=== PATIENT | female | born 1995 | race Caucasian/White ===

== ENCOUNTER 2022-08-01 10:09 | Emergency (ER) | payer OTHER, SELFPAY ==
[2022-08-01 10:10] VITALS: BP 173/118; PULSE 126; RESP 18; TEMP 36.6; O2SAT 100; BMI 25.4
--- NOTE | 2022-08-01 10:51 | MRI_ITS ---
STUDY: MRI LUMBAR SPINE WITHOUT CONTRAST REASON FOR EXAM: Female, 27 years old. Numbness S1, S2 dermatome bilateral TECHNIQUE: Standardized fat and water weighted pulse sequences were obtained in the sagittal and axial planes. COMPARISON: None FINDINGS: T12-L1: Normal endplates. Normal disc height, hydration and morphology. Normal bilateral facet joints. Normal central canal and bilateral lateral recesses. Normal bilateral intervertebral neural foramina. Normal lumbar lordosis. There is no substantial scoliosis. Normal conus medullaris that terminates at the L1. L1-2: Normal endplates. Normal disc height, hydration and morphology. Normal bilateral facet joints. Normal central canal and bilateral lateral recesses. Normal bilateral intervertebral neural foramina. L2-3: Normal endplates. Normal disc height, hydration and morphology. Normal bilateral facet joints. Normal central canal and bilateral lateral recesses. Normal bilateral intervertebral neural foramina. L3-4: Normal endplates. Normal disc height, hydration and morphology. Normal bilateral facet joints. Normal central canal and bilateral lateral recesses. Normal bilateral intervertebral neural foramina. L4-5: Normal endplates. Normal disc height, hydration and morphology. Normal bilateral facet joints. Normal central canal and bilateral lateral recesses. Normal bilateral intervertebral neural foramina. L5-S1: Mild broad disc protrusion produces mild spinal stenosis and mild bilateral neural foraminal stenosis. Normal visualized sacral ala. Normal visualized paraspinous soft tissue structures. MRI/Spine Lumbar (Routine) IMPRESSION: Mild focal degenerative disc disease at L5/S1 as described above. Electronically Signed: Zaki Kraus MD at 13:13 EST ,
--- NOTE | 2022-08-01 10:51 | ED.VIS.BACK ---
HPI History of Present Illness Chief Complaint: Back Detail of Chief Complaint: Bilateral back pain with bilateral numbness buttocks and right and left eugene Informant: patient Onset/Context/Timing Onset: Yesterday Context: Sudden Onset Injury: - (No history of injury) Timing: Continuous Quality: Dull Location: Lumbar, Buttock and - (Right and left groin) Current Severity: Mild Maximum Severity: Moderate Worsened by: improves with Movement, Ambulation, Bending and Lifting Relieved by: Nothing Associated Symptoms Associated Symptoms: Numbness, Tingling, Fever and - (Denies bowel bladder dysfunction. Denies saddle paresthesia or anesthesia. Denies foot drop. Denies buckling of her knees going up or down steps); Negative for Radiation to Right Leg, Radiation to Left Leg, Abdominal Pain, Dysuria, Unable to Ambulate, Unable to Transfer, Urinary Retention, Urinary Incontinence, Constipation or Fecal Incontinence Narrative Narrative: Patient is a 27-year-old female who presents with bilateral low back pain and numbness in the distribution of S1-S2. She denies bowel bladder dysfunction. Denies saddle paresthesia anesthesia. She has had a documented temperature to 101 degrees. She denies urologic symptoms. She states she went to a chiropractor to have her back adjusted because she has to work tomorrow. He would not see her because of the numbness. There is no recent history of dental procedure. She has mild congestion. There is no history of recent vaccination per old records. Prior similar symptoms: No Recent Illness/Hospitalization: No PFSH PFSH Medical History no medical history no medical history Home Medications hydrocodone-acetaminophen 5-325mg 5mg-325mg 1 tab PO Q6H PRN PRN Pain 3 days #10 TABLETS 08/01/22 [Rx Last Taken Unknown] naproxen 500 mg tablet 500 mg PO BID #14 tabs 08/01/22 [Rx Last Taken Unknown] Allergy/AdvReac Type Severity Reaction Status Date / Time lavender (Lavandula Allergy Hives Verified 08/01/22 10:13 angustifolia) Surgical History no surgical history no surgical history Social History (Updated 08/01/22 @ 10:[address] Lucho Weiss MD) household members: significant other Smoking Status: Unknown if ever smoked substance use type: does not use ROS ROS ED Constitutional Constitutional ED: Reports fever(s); Denies chills, subjective or sweats Eyes Eyes: Denies blurry vision, change in vision or diplopia ENT ENT ED: Denies ear pain, rhinorrhea or sore throat Cardiovascular Cardiovascular: Denies chest pain, orthopnea, palpitations or paroxysmal nocturnal dyspnea Respiratory/Chest Respiratory/Chest: Denies dyspnea, dyspnea on exertion, orthopnea or paroxysmal nocturnal dyspnea Gastrointestinal Gastrointestinal: Denies abdominal pain, constipation, diarrhea, nausea or vomiting Genitourinary Genitourinary ED: Denies dysuria, hematuria or urinary frequency Musculoskeletal Musculoskeletal: Reports back pain; Denies arthralgias, myalgias or neck pain Integumentary Denies Abrasions or rash Neurologic Neurologic: Reports paresthesias; Denies headache(s) or weakness Psychiatric Psychiatric: Denies anxiety or depression Endocrine Endocrinology: Denies cold intolerance or heat intolerance Hematologic/Lymphatic Hematologic/Lymphatic: Denies easy bleeding, easy bruising or lymphadenopathy EXAM Physical Exam Const Vital Signs: 08/01/22 10:10 Temperature 98 F Temperature Source Temporal Pulse Rate 126 H Respiratory Rate 18 Blood Pressure 173/118 H Blood Pressure Mean 136 Pulse Ox 100 Oxygen Delivery Method Room Air Positive well nourished and well developed General Appearance ED: well developed and NAD; Negative for pallor HEENT Reports moist mucous membranes HEENT Narrative: Ears normal. Head atraumatic normocephalic. Nares patent. Eyes PERRL and EOMs intact bilaterally General Eye ED: Negative for pale conjunctiva or scleral icterus Neck no lymphadenopathy, supple and no JVD Resp normal respiratory effort and clear to auscultation bilaterally Cardio regular rhythm, S1 normal heart sound, S2 normal heart sound and no murmurs Rate: tachycardic GI normal to inspection, nondistended, normoactive bowel sounds, soft to palpation, non-tender, non-distended and no masses Back/Spine normal to inspection; Negative for no thoracic nor lumbar tenderness Back/Spine Narrative: Pain to the normal the lumbar region. DTR 2+ patella ankle and symmetric. EHL intact. Normal sensation over L3, L4, L5. Patient does have numbness in the S1 distribution bilaterally. She has normal perianal sensation. There is no clonus. There is no Babinski sign. Gait was observed with no foot drop. Able to walk on heels and toes. Movement does her pain. Cervical Spine: Negative for cervical spine tenderness Thoracic Spine / Upper Back: Negative for paraspinal muscle tenderness Lumbar Spine / Lower Back: ROM limited and straight leg raise negative bilaterally Extremity normal to inspection and no clubbing, cyanosis or edema Neuro oriented x3 and No no sensory deficits noted Motor Exam: strength 5/5 throughout Deep Tendon Reflexes: Rt Patellar (L4): 2+, Lt Patellar (L4): 2+, Rt Ankle (S1): 2+ and Lt Ankle (S1): 2+ Deep Tendon Reflexes Back: Rt Patellar (L4): 2+, Lt Patellar (L4): 2+, Rt Ankle (S1): 2+ and Lt Ankle (S1): 2+ Plantar Reflex: Downgoing: bilateral Psych mental status grossly normal Skin no rashes or lesions noted and no wounds General Skin Exam: Negative for jaundice or pallor MDM MDM MDM Narrative Medical decision making narrative: Complaint of pain, fever and subjective numbness in the S1 dermatome contacted radiologist regarding proper image. After discussion MRI without contrast was ordered. MRI reveals no significant abnormality. Patient was treated with oral analgesics and discharged home Radiography Diagnostic Testing: Clinical Impression(s) from Imaging Studies Lumbar Spine MRI 08/01/22 10:51 IMPRESSION: Mild focal degenerative disc disease at L5/S1 as described above. Electronically Signed: Zaki Kraus MD at 13:13 EST Reading Location ID and State: [address] [place] [address] Tel , Service support , Discharge Plan Triage Chief Complaint: Back ED Provider: Lucho Weiss Dx/Rx/DC Orders Clinical Impression: Acute bilateral low back pain, Paresthesia of both legs Instructions: ED Back Pain (Acute or Chronic), ED Paraesthesias Prescriptions: New hydrocodone-acetaminophen [hydrocodone-acetaminophen] 5-325 mg tablet 1 tab PO Q6H PRN PRN (Reason: Pain) 3 Days Qty: 10 0RF naproxen 500 mg tablet 500 mg PO BID Qty: 14 0RF Stand Alone Forms: ED Work / School Excuse Primary Care Provider: Care Physician,No Primary Referrals: Town Doctor,Out of [Non-Staff] - 3-5 Days if not improving Activity Restrictions/Additional Instructions: 1. Apply ice to your lower back 8-10 times a day 2. Avoid activity that causes you increased pain Disposition Disposition: Home, Self Care
[2022-08-01 14:03] VITALS: RESP 16
== END 2022-08-01 14:05 | disposition home or self-care (01) ==
PROVIDERS: Emergency Provider Emergency Medicine; Visit Provider Emergency Medicine
DX: M54.50 Low back pain, unspecified (principal); R20.2 Paresthesia of skin; R50.9 Fever, unspecified
CPT/HCPCS: 72148; 99282

== ENCOUNTER → 2023-03-27 | Outpatient (CLI) | payer OTHER, SELFPAY ==
[2023-03-27 12:46] LABS: Absolute Lymphocyte Count 2.17 X10^3/uL (0.83-4.51); Absolute Neutrophil Count 4.4 X10^3/uL (2.0-7.7); Basophil# 0.07 X10^3/uL; Eosinophil# 0.09 X10^3/uL; Eosinophils% 1.2 % (0-5); Hematocrit 41.9 % (37-47); Hemoglobin 13.8 g/dL (12.0-15.0); Lymphocyte # 2.17 X10^3/ul (0.83-4.51); Lymphocyte % 29.8 % (19-41); Mean Corp Hgb Conc 32.9 g/dL (32-36); Mean Corpuscular Volume 91.1 fL (81-99); Mean Platelet Vol. 9.4 fl (6.2-12.0); Monocyte# 0.54 X10^3/uL; Monocyte% 7.4 % (0-10); NRBC Flagged by Analyzer 0 % (0-5); Neutrophil % 60.3 % (47-70); Platelet Count 243 K/mm3 (150-450); RBC Distribution Width CV 11.9 % (11.6-14.6); RBC Distribution Width SD 39.8 fl (35.1-43.9); White Blood Count 7.3 K/mm3 (4.4-11.0)
[2023-03-27 13:44] LABS: HIV - WCH Non-Reactive (Nonreactive); Hepatitis B Surface Antigen Non-Reactive (Nonreactive); Hepatitis C Antibody Non-Reactive (Nonreactive); Rubella IgG Reactive (Nonreactive); Syphilis Antibodies Non-reactive
== END | disposition home or self-care (01) ==
PROVIDERS: PCP Family Medicine; Referring Provider Obstetrics & Gynecology; Visit Provider Obstetrics & Gynecology
DX: Z34.90 Encounter for supervision of normal pregnancy, unspecified, unspecified trimester (principal); Z3A.00 Weeks of gestation of pregnancy not specified
CPT/HCPCS: 36415; 84702; 85025; 86703; 86762; 86780; 86803; 86850; 86900; 86901; 87086; 87340

== ENCOUNTER → 2023-04-05 | Outpatient (CLI) | payer OTHER, SELFPAY ==
[2023-04-08 22:07] LABS: Chlamydia By Nucleic Acid AMP Negative (Negative); Gonococcus By Nucleic Acid AMP Negative (Negative)
[2023-04-11 13:08] LABS: HPV APTIMA, High Risk Negative (Negative)
== END | disposition home or self-care (01) ==
LOC: LABSPEC 16:26
PROVIDERS: PCP Family Medicine; Referring Provider Obstetrics & Gynecology; Visit Provider Obstetrics & Gynecology
DX: Z34.90 Encounter for supervision of normal pregnancy, unspecified, unspecified trimester (principal); Z3A.00 Weeks of gestation of pregnancy not specified
CPT/HCPCS: 87491; 87591; 87624; 88175; G0145

== ENCOUNTER → 2023-04-16 | Outpatient (CLI) | payer OTHER, SELFPAY ==
[2023-04-16 11:35] LABS: NATERA MAILED SPECIMEN
== END | disposition home or self-care (01) ==
LOC: LAB 10:33
PROVIDERS: PCP Family Medicine; Referring Provider Obstetrics & Gynecology; Visit Provider Obstetrics & Gynecology
DX: Z34.81 Encounter for supervision of other normal pregnancy, first trimester (principal); Z3A.00 Weeks of gestation of pregnancy not specified
CPT/HCPCS: 36415

== ENCOUNTER → 2023-06-24 | Outpatient (CLI) | payer OTHER, SELFPAY ==
--- NOTE | 2023-06-24 13:24 | US_ITS ---
HISTORY: anatomy. LMP 02/04/2023. TECHNIQUE: Transabdominal and transvaginal pelvic ultrasound was performed. 117 images. COMPARISON: None. FINDINGS: INTRAUTERINE GESTATION(s): Single. PRESENTATION: Breech. HEART MOTION: 152 bpm. PLACENTA: Anterior, grade 0. No placenta previa. CERVIX: 3.6-5.2 cm long and closed. AMNIOTIC FLUID: 4.9 cm maximum vertical pocket. MATERNAL OVARIES: 3.7 x 3.8 x 3.9 cm left ovarian cyst. biometry- BIPARIETAL DIAMETER: 4.6 cm, corresponding to 19 weeks 6 days. 45th percentile. HEAD CIRCUMFERENCE: 17.1 cm, corresponding to 19 weeks 5 days. 29 percentile. ABDOMINAL CIRCUMFERENCE: 14.5 cm, corresponding to 19 weeks 6 days. 38th percentile. FEMUR LENGTH: 3 cm, corresponding to 19 weeks 1 day. 14th percentile. ESTIMATED GESTATIONAL AGE: 19 weeks 4 days. ESTIMATED DUE DATE (LEANA): 11/14/2023. ESTIMATED WEIGHT: 299 g. 23rd percentile. ANATOMY: Anterior and posterior cranial fossa, nose/lips, spine, upper and lower extremities, four-chamber heart, three-vessel cord insertion, stomach, kidneys, and bladder visualized. US/OB Anatomy w/ Transvaginal IMPRESSION: Single living intrauterine currently in breech presentation with an estimated gestational age of 19 weeks 4 days. Unremarkable anatomic survey. 3.9 cm cyst in the maternal left ovary. Electronically Signed: Kiki Edmondson MD at 10:00 EDT ,
== END | disposition home or self-care (01) ==
LOC: OPUS 13:24
PROVIDERS: PCP Family Medicine; Referring Provider Registered Nurse; Visit Provider Registered Nurse
DX: O09.90 Supervision of high risk pregnancy, unspecified, unspecified trimester (principal); Z3A.00 Weeks of gestation of pregnancy not specified
CPT/HCPCS: 76805; 76817

== ENCOUNTER → 2023-06-28 | Outpatient (CLI) | payer OTHER, SELFPAY | END | disposition home or self-care (01) | PROVIDERS: PCP Family Medicine; Visit Provider Obstetrics & Gynecology | DX: R35.0 Frequency of micturition (principal) | CPT/HCPCS: 87086 ==

== ENCOUNTER → 2023-08-06 | Outpatient (CLI) | payer OTHER, SELFPAY ==
--- NOTE | 2023-08-06 15:34 | US_ITS ---
STUDY: SECOND AND THIRD TRIMESTER OBSTETRICAL ULTRASOUND - LIMITED REASON FOR EXAM: Female, 28 years old left ovarian cyst / profile LMP: 02/04/2023 PRIOR ULTRASOUND: 06/24/2023 TECHNIQUE: Transabdominal TECHNICAL QUALITY: Adequate. FINDINGS: There is a single intrauterine fetus. The fetus is in a breech presentation. There is demonstrated cardiac activity with a heart rate of 144 bpm. There is a normal amniotic fluid volume. The largest amniotic fluid pocket measures 4.4 cm. The amniotic fluid index (BLANK) is cm. The placenta is fundal in location. There are Grade 1 placental changes. The cervix measures 3.2 cm in length. Age by LMP: 26 weeks, 1 days. LEANA by LMP: 11/11/2023. There is an 8.5 x 5.0 cm isoechoic mass in the left adnexa adjacent to the uterus with similar echogenicity to myometrium. This is of uncertain etiology and significance. The right ovary measures 3.6 x 1.7 cm with normal morphology and echogenicity. The left ovary measures 2.6 x 2.6 cm and contains a 4.0 cm oval anechoic mass possibly a theca lutein cyst. US/OB Limited (No Biometrics) IMPRESSION: 1. Living intrauterine of 26 weeks 1 day as described above. 2. 8.5 x 5.0 cm isoechoic mass in the left adnexa adjacent to the uterus of uncertain etiology and significance. 3. No change in 4 cm probable theca lutein cyst of the left ovary. Electronically Signed: Zaki Kraus MD at 17:29 EST ,
== END | disposition home or self-care (01) ==
LOC: US 15:33
PROVIDERS: PCP Family Medicine; Referring Provider Registered Nurse; Visit Provider Registered Nurse
DX: O34.82 Maternal care for other abnormalities of pelvic organs, second trimester (principal); N83.202 Unspecified ovarian cyst, left side; Z3A.20 20 weeks gestation of pregnancy
CPT/HCPCS: 76815

== ENCOUNTER → 2023-08-23 | Outpatient (CLI) | payer OTHER, SELFPAY ==
[2023-08-23 08:18] LABS: Absolute Lymphocyte Count 1.82 X10^3/uL (0.83-4.51); Absolute Neutrophil Count 5.7 X10^3/uL (2.0-7.7); Basophil# 0.05 X10^3/uL; Basophil% 0.6 % (0-1); Eosinophil# 0.09 X10^3/uL; Eosinophils% 1.1 % (0-5); Hematocrit 39.1 % (37-47); Lymphocyte # 1.82 X10^3/ul (0.83-4.51); Lymphocyte % 22.6 % (19-41); Mean Corp Hgb Conc 33.2 g/dL (32-36); Mean Corpuscular Hgb 30.6 pg (27.0-32.0); Mean Platelet Vol. 9.2 fl (6.2-12.0); NRBC Flagged by Analyzer 0 % (0-5); Neutrophil # 5.67 X10^3/uL (2.7-7.7); Neutrophil % 70.2 % (47-70); Platelet Count 195 K/mm3 (150-450); RBC Distribution Width CV 12.8 % (11.6-14.6); Red Blood Count 4.25 M/mm3 (4.2-5.4); White Blood Count 8.1 K/mm3 (4.4-11.0)
[2023-08-23 08:40] LABS: Glucose Challenge Gest 1H 50g 115 mg/dL (70-140)
[2023-08-23 09:15] LABS: HIV - WCH Non-Reactive (Nonreactive); Syphilis Antibodies Non-reactive
== END | disposition home or self-care (01) ==
PROVIDERS: Advanced Practice Midwife; PCP Family Medicine; Referring Provider Obstetrics & Gynecology; Visit Provider Obstetrics & Gynecology
DX: Z34.90 Encounter for supervision of normal pregnancy, unspecified, unspecified trimester (principal); Z3A.24 24 weeks gestation of pregnancy
CPT/HCPCS: 36415; 82950; 85025; 86703; 86780

== ENCOUNTER → 2023-10-03 | Outpatient (CLI) | payer OTHER, SELFPAY ==
--- NOTE | 2023-10-03 07:56 | MRI_ITS ---
EXAM: MR PELVIS WITHOUT INTRAVENOUS CONTRAST CLINICAL INDICATION: pelvic mass FIBROID AND CYST FOUND AT 20WK ULTRASOUND -- NO CONTRAST DUE TO CURRENTLY 35WK ...SOME LT SIDED PAIN TECHNIQUE: Multiplanar and multisequence MR images of the pelvis without intravenous contrast. COMPARISON: No relevant prior studies available. FINDINGS: OVARIES: Right ovary is not clearly seen. 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 Endometrial thickness of the left horn is 2.1 cm. A single fetus is present within the right horn in breech presentation demonstrating a crown-rump length of 26.67 cm and BPD of 8.3 cm. Cervix measures 3.5 cm in diameter and appears closed. 12 mm cystic area along the right side of the cervix suggestive of nabothian cyst. Right lateral placental location without evidence of previa. Amniotic fluid volume appears diminished. A 4.8 x 4.2 cm simple appearing cyst located anterior to the left uterine horn which is likely physiologic change of the left ovary. MRI/Pelvis (Routine) IMPRESSION: 1. Soft tissue mass within the left side of the pelvis consistent with the left horn of a didelphys uterus. 2. Third trimester gestation within the right uterine horn with suggestion of oligohydramnios. 3. 4.8 x 4.2 cm left anterior adnexal cystic mass which may represent physiologic change of the ovary. Electronically Signed: Colton Ugalde MD at 10:46 EST ,
== END | disposition home or self-care (01) ==
LOC: MRI 07:54
PROVIDERS: PCP Family Medicine; Referring Provider Obstetrics & Gynecology; Visit Provider Obstetrics & Gynecology
DX: O26.899 Other specified pregnancy related conditions, unspecified trimester (principal); R19.00 Intra-abdominal and pelvic swelling, mass and lump, unspecified site; Z3A.00 Weeks of gestation of pregnancy not specified
CPT/HCPCS: 72195

== ENCOUNTER 2023-10-15 15:12 | Outpatient (CLI) | payer OTHER, SELFPAY ==
[2023-10-15 15:29] VITALS: TEMP 36.1
[2023-10-15 15:30] VITALS: BP 140/95; PULSE 93
[2023-10-15 15:36] VITALS: BMI 29.7
[2023-10-15 15:46] VITALS: BP 143/93; PULSE 86
[2023-10-15 16:01] VITALS: BP 139/93; PULSE 109
[2023-10-15 16:14] LABS: Hematocrit 39.5 % (37-47); Hemoglobin 13.8 g/dL (12.0-15.0); Mean Corp Hgb Conc 34.9 g/dL (32-36); Mean Corpuscular Hgb 31.3 pg (27.0-32.0); Mean Corpuscular Volume 89.6 fL (81-99); Mean Platelet Vol. 9.8 fl (6.2-12.0); Platelet Count 206 K/mm3 (150-450); RBC Distribution Width CV 12.5 % (11.6-14.6); Red Blood Count 4.41 M/mm3 (4.2-5.4); White Blood Count 10.9 K/mm3 (4.4-11.0)
[2023-10-15 16:16] VITALS: BP 145/99; PULSE 100
[2023-10-15 16:17] LABS: Protein, Urine (Random) 11.9 mg/dL (<11.9); Protein:Creat Ratio 316 mg/g CRE (0-200)
[2023-10-15 16:18] LABS: AST(SGOT) 18 U/L (15-37); Alanine Aminotransfer ALT/SGPT 21 U/L (13-56); Creatinine, Serum 0.48 mg/dL (0.55-1.02); EST Glomerular Filtration Rate 163 mL/min (>60); Est Glom Filt Rate - Afr Amer 197 mL/min (>60); Estimated Creatinine Clearance 170.67 ml/min; Uric Acid 4.4 mg/dL (2.6-6.0)
[2023-10-15 16:31] VITALS: BP 147/94; PULSE 95
--- NOTE | 2023-10-15 16:43 | OB.TRI.HP_ITS ---
HPI - General HPI Narrative NELLI STEWART, is a 28 Y/O @ 36 WEEKS 1 day who presents to L&D for elevated bp's that were seen in office. the patient denies headache, visual changes, or abdominal pain. bp's are 140's/90's and prot: cr ratio was 316. Maternal Data Information LEANA Calculator Estimated Delivery Date Method Current WG Current Estimate 11/11/23 LMP (Certain) 36w 1d PFSH PFSH Medical History Hx of abnormal cervical Pap smear Home Medications multivit-min no.71-iron fum 28 mg-folate no.1 1 mg-dha 300 mg capsule (PNV- Jewett) cap PO 03/26/23 [History Last Taken Unknown] Allergy/AdvReac Type Severity Reaction Status Date / Time lavender (Lavandula Allergy Hives Verified 10/15/23 14:23 angustifolia) Surgical History History of appendectomy [place] teeth extracted Social History adopted: No household members: spouse current occupational status: employed 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 pets and animals: No history of recent travel: Yes ([place], [place]) out of state: Yes out of country: No sexually active: Yes Smoking Status: Never smoker alcohol intake: current alcohol intake frequency: holidays/special occasions o nly details: Not while substance use type: does not use well-balanced diet: daily or most days caffeine: Yes Type: coffee Number of servings: 1 eating out: rarely or never during the past year weight has: remained stable what type of physical activity do you participate in: weight training frequency: 1-2 times per week [facility]: Jew seatbelt use: always do you feel safe at home: Yes additional social history: Yusef Sutton History 1 Elective abortions Hx Para 0 Spontaneous abortions Hx # Term Pregnancies Ectopic pregnancies Hx # Pregnancies Multiple births # of living children Visit Details Expected Delivery Route/Plan Labor Preferences- CB/BF classes: declined labor support person: yusef labor intervention preferences: pain management options preferred: open to epidural cut cord/dad catch: [] : yes PP control planned: none discussed possible routes of delivery and associated risks: [] special requests: [] Plans Covid status: declined Flu vaccine: given Tdap vaccine: given Rhogam: na LARC form signed: declined movement and labor precautions reviewed. Problem list reviewed and updated with the most current plan of care details and appropriate orders placed. Relevant counseling for the gestational age provided. Continue routine care and follow up unless otherwise noted in visit notes/problem list details OB Flowsheet Initial Weight: 148 lb Date -?-?-?-?-?-?-?-?-?-?-?-?- EGA Weight BP Urine Prot -?-?-?-?-?-?-?-?-?-?-?-?- Glucose FHR FuHt Pres Dilation -?-?-?-?-?-?-?-?-?-?-?-?- Effaced St Visit Note 04/05/23 -?-?-?-?-?-?-?-?-?-?-?-?- 8w 4d 148 lb 6 oz (+6 oz) -?-?-?-?-?-?-?-?-?-?-?-?- 124 -?-?-?-?-?-?-?-?-?-?-?-?- JV- CRL consiste nt with LMP. LEANA 11/10/22, desires NIPT but declines carrier screen. 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 04/29/23 -?-?-?-?-?-?-?-?-?-?-?-?- 12w 0d 146 lb 6 oz (-1 lb 10 oz) 145/92 130/76 Negative -?-?-?-?-?-?-?-?-?-?-?-?- Negative 160 -?-?-?-?-?-?-?-?-?-?-?-?- LC- no vb/crampi ng. LC- no vb/cramping. no florian rns today. discussed and declines afp. [facility] for anatomy scan, order placed. 05/31/23 -?-?-?-?-?-?-?-?-?-?-?-?- 16w 4d 150 lb 4 oz (+2 lb 4 oz) 122/80 Negative -?-?-?-?-?-?-?-?-?-?-?-?- Negative 156 -?-?-?-?-?-?-?-?-?-?-?-?- LC- no vb/crampi ng. no concerns. 06/28/23 -?-?-?-?-?-?-?-?-?-?-?-?- 20w 4d 152 lb 8 oz (+4 lb 8 oz) 134/86 Negative -?-?-?-?-?-?-?-?-?-?-?-?- Negative 165 -?-?-?-?-?-?-?-?-?-?-?-?- JV- some crampin g and dark urine. ua looks normal but will send for culture. no other complaints. nurse on [employer] 07/23/23 -?-?-?-?-?-?-?-?-?-?-?-?- 24w 1d 157 lb (+9 lb) 119/74 Negative -?-?-?-?-?-?-?-?-?-?-?-?- Negative 150 24 -?-?-?-?-?-?-?-?-?-?-?-?- no vb/cramping. good fm. discussed 28 week labs. 08/23/23 -?-?-?-?-?-?-?-?-?-?-?-?- 28w 4d 159 lb 4 oz (+11 lb 4 oz) 136/86 Negative -?-?-?--?-?-?-?-?-?-?-?-?- Negative 145 29 -?-?-?-?-?-?-?-?-?-?-?-?- JV- ultrasound s howed an 8 cm mass that has similar echogenicity to myometrium. I suspect a fibroid, however this never showed up in her prior ultrasound. ordering MRI and will consider MFM consult. it is located on the left upper aspect of uterus. JV- ultrasound showed an 8 c m mass that has similar echogenicity to myometrium. I suspect a fibroid, however this never showed up in her prior ultrasound. ordering MRI and will consider MFM consult. it is located on the left upper aspect of uterus. Tdap given. normal 3rd trimester labs. 09/05/23 -?-?-?-?-?-?-?-?-?-?-?-?- 30w 3d 160 lb (+12 lb) 130/80 Negative -?-?-?-?-?-?-?-?-?-?-?-?- Negative 140 32 -?-?-?-?-?-?-?-?-?-?-?-?- SM- needs to [facility]. no vb lof good fm no regular ctx 09/20/23 -?-?-?-?-?-?-?-?-?-?-?-?- 32w 4d 164 lb 6 oz (+16 lb 6 oz) 138/88 Negative -?-?-?-?-?-?-?-?-?-?-?-?- Negative 142 32 -?-?-?-?-?-?-?-?-?-?-?-?- JV- no lof, vagi nal bleeding, or dec fm. has mri scheduled! 10/02/23 -?-?-?-?-?-?-?-?-?-?-?-?- 34w 2d 167 lb (+19 lb) 138/86 Negative -?-?-?-?--?-?-?-?-?-?-?-?- Negative 150 34 -?-?-?-?-?-?-?-?-?-?-?-?- JV- no lof, vagi nal bleeding, or dec fm. no complaints other than not sleeping well. 10/15/23 -?-?-?-?-?-?-?-?-?-?-?-?- 36w 1d 169 lb (+21 lb) 140/80 -?-?-?-?-?-?-?-?-?-?-?-?- 140 36 Breech -?-?-?-?-?-?-?-?-?-?-?-?- SM- no vb lof go od fm n oregular ctx no VICKERS BV to l and d for pree evaluation scheduled cs at 39 for now ordered growth US only 1 cervix on exam and 1 vagina ROS Constitutional Constitutional: Reports systems reviewed and no addt'l complaints, except as documented Gastrointestinal Gastrointestinal: Denies bloating, constipation, cramping, diarrhea, nausea or vomiting Genitourinary Genitourinary: Reports other Details: Denies vaginal odor, vaginal bleeding, or vaginal discharge ; Denies difficulty urinating or flank pain Physical Exam HEENT normocephalic Resp normal respiratory effort and normal air movement no CVA tenderness Extremity normal to inspection General Extremity: edema bilateral (trace ) NST FHR Rate Baby A Baseline: 140 Variability:: Moderate Accelerations:: 15 x 15 Decelerations:: None NST Reactive:: Yes FHR Category:: Category I Assessment & Plan (1) Mild pre-eclampsia: (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 (3) Breech presentation: COMMENT: plan primary csection. (4) Ovarian cyst affecting in second trimester, antepartum: COMMENT: 3.9cm (5) Supervision of high-risk : COMMENT: PRR , LEANA 11/11/23, boy, Yusef (6) : QUALIFIERS: Weeks of gestation: 36 weeks Qualified Code(s): Z3A.36 - 36 weeks gestation of COMMENT: NIPT low risk, declined ntd and carrier testing. anatomy reviewed. PLAN: Plan plan for steroids now and rpt tomorrow at this time. will rpt bp tomorrow when here if in severe range may deliver tomorrow, otherwise will plan for 37 weeks (saturday am) Charges/Coding Multi Select Codes Visit Charges Office Visit/Consults: 42886 OV L3 Est 20min Urinary/Genital Urinary/Genital CPT Codes: 41466-76 non-stress test Interp
[2023-10-15] MEDS: Betamethasone/Betamethasone 30 MG/5 ML Vial 12 MG IM (16:53)
== END 2023-10-15 17:10 | disposition home or self-care (01) ==
LOC: WPOUT 15:13 → WP 15:16
PROVIDERS: PCP Family Medicine; Referring Provider Advanced Practice Midwife; Visit Provider Advanced Practice Midwife
DX: O14.03 Mild to moderate pre-eclampsia, third trimester (principal); Z3A.36 36 weeks gestation of pregnancy; O34.03 Maternal care for unspecified congenital malformation of uterus, third trimester; Q51.3 Bicornate uterus; O32.1XX0 Maternal care for breech presentation, not applicable or unspecified
CPT/HCPCS: 36415; 59025; 59050; 82565; 82570; 84156; 84450; 84460; 84550; 85027; 87081; 96372; 99221; G0378; J0702

== ENCOUNTER 2023-10-16 15:44 | Outpatient (CLI) | payer OTHER, SELFPAY ==
[2023-10-16 15:57] VITALS: BMI 29.5
[2023-10-16 16:11] VITALS: BP 139/93; PULSE 100
[2023-10-16] MEDS: Betamethasone/Betamethasone 30 MG/5 ML Vial 12 MG IM (16:30)
--- NOTE | 2023-10-16 16:41 | OB.TRI.HP_ITS ---
HPI - General General Date of Admission: 10/16/23 HPI Narrative NELLI STEWART, is a 28 F who presents today for an injection of celestone for mild pre-eclampsia and planned section saturday. She denies severe features and bp is stable. Maternal Data Information LEANA Calculator Estimated Delivery Date Method Current WG Current Estimate 11/11/23 LMP (Certain) 36w 2d PFSH PFSH Medical History Hx of abnormal cervical Pap smear Home Medications multivit-min no.71-iron fum 28 mg-folate no.1 1 mg-dha 300 mg capsule (PNV- [place]) cap PO 03/26/23 [History Last Taken Unknown] Allergy/AdvReac Type Severity Reaction Status Date / Time lavender (Lavandula Allergy Hives Verified 10/15/23 14:23 angustifolia) Surgical History History of appendectomy [place] teeth extracted Social History adopted: No household members: spouse current occupational status: employed 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 pets and animals: No history of recent travel: Yes ([place], [place]) out of state: Yes out of country: No sexually active: Yes Smoking Status: Never smoker alcohol intake: current alcohol intake frequency: holidays/special occasions only details: Not while substance use type: does not use well-balanced diet: daily or most days caffeine: Yes Type: coffee Number of servings: 1 eating out: rarely or never during the past year weight has: remained stable what type of physical activity do you participate in: weight training frequency: 1-2 times per week heavenly/zoroastrian: Taoism seatbelt use: always do you feel safe at home: Yes additional social history: Yusef Sutton History 1 Elective abortions Hx Para 0 Spontaneous abortions Hx # Term Pregnancies Ectopic pregnancies Hx # Pregnancies Multiple births # of living children Visit Details Expected Delivery Route/Plan Labor Preferences- CB/BF classes: declined labor support person: yusef labor intervention preferences: pain management options preferred: open to epidural cut cord/dad catch: [] : yes PP control planned: none discussed possible routes of delivery and associated risks: [] special requests: [] Plans Covid status: declined Flu vaccine: given Tdap vaccine: given Rhogam: na LARC form signed: declined movement and labor precautions reviewed. Problem list reviewed and updated with the most current plan of care details and appropriate orders placed. Relevant counseling for the gestational age provided. Continue routine care and follow up unless otherwise noted in visit notes/problem list details OB Flowsheet Initial Weight: 148 lb Date -?-?-?-?-?-?-?-?-?-?-?-?- EGA Weight BP Urine Prot -?-?-?-?-?-?-?-?-?-?-?-?- Glucose FHR FuHt Pres Dilation -?-?-?-?-?-?-?-?-?-?-?-?- Effaced St Visit Note 04/05/23 -?-?-?-?-?-?-?-?-?-?-?-?- 8w 4d 148 lb 6 oz (+6 oz) -?-?-?-?-?-?-?-?-?-?-?-?- 124 -?-?-?-?-?-?-?-?-?-?-?-?- JV- CRL consiste nt with LMP. LEANA 11/10/22, desires NIPT but declines carrier screen. 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 04/29/23 -?-?-?-?-?-?--?-?-?-?-?-?- 12w 0d 146 lb 6 oz (-1 lb 10 oz) 145/92 130/76 Negative -?-?-?-?-?-?-?-?-?-?-?-?- Negative 160 -?-?-?-?-?-?-?-?-?-?--?-?- LC- no vb/crampi ng. LC- no vb/cramping. no florian rns today. discussed and declines afp. [facility] for anatomy scan, order placed. 05/31/23 -?-?-?-?-?-?-?-?-?-?-?-?- 16w 4d 150 lb 4 oz (+2 lb 4 oz) 122/80 Negative -?-?-?-?-?-?-?-?-?-?-?-?- Negative 156 -?-?-?-?-?-?-?-?-?-?-?-?- LC- no vb/crampi ng. no concerns. 06/28/23 -?-?-?-?-?-?-?-?-?-?-?-?- 20w 4d 152 lb 8 oz (+4 lb 8 oz) 134/86 Negative -?-?-?-?-?-?-?-?-?-?-?-?- Negative 165 -?-?-?-?-?-?-?-?-?-?-?-?- JV- some crampin g and dark urine. ua looks normal but will send for culture. no other complaints. nurse on ms3 07/23/23 -?-?-?-?-?-?-?-?-?-?-?-?- 24w 1d 157 lb (+9 lb) 119/74 Negative -?-?-?-?-?-?-?-?-?-?-?-?- Negative 150 24 -?-?-?-?-?-?-?-?-?-?-?-?- no vb/cramping. good fm. discussed 28 week labs. 08/23/23 -?-?-?-?-?-?-?-?-?-?-?-?- 28w 4d 159 lb 4 oz (+11 lb 4 oz) 136/86 Negative -?-?-?-?-?-?-?-?-?-?-?-?- Negative 145 29 -?-?-?-?-?-?-?-?-?-?-?-?- JV- ultrasound s howed an 8 cm mass that has similar echogenicity to myometrium. I suspect a fibroid, however this never showed up in her prior ultrasound. ordering MRI and will consider MFM consult. it is located on the left upper aspect of uterus. JV- ultrasound showed an 8 c m mass that has similar echogenicity to myometrium. I suspect a fibroid, however this never showed up in her prior ultrasound. ordering MRI and will consider MFM consult. it is located on the left upper aspect of uterus. Tdap given. normal 3rd trimester labs. 09/05/23 -?-?-?-?-?-?-?-?-?-?-?-?- 30w 3d 160 lb (+12 lb) 130/80 Negative -?-?-?-?-?-?-?-?-?-?-?-?- Negative 140 32 -?-?-?-?-?-?-?-?-?-?-?-?- [facility] l[facility] good fm no regular ctx 09/20/23 -?-?-?-?-?-?-?-?-?-?-?-?- 32w 4d 164 lb 6 oz (+16 lb 6 oz) 138/88 Negative -?-?-?-?-?-?-?-?-?-?-?-?- Negative 142 32 -?-?-?-?-?-?-?-?-?-?-?-?- JV- no lof, vagi nal bleeding, or dec fm. has mri scheduled! 10/02/23 -?-?-?-?-?-?-?-?-?-?-?-?- 34w 2d 167 lb (+19 lb) 138/86 Negative -?-?-?-?-?-?-?-?-?-?-?-?- Negative 150 34 -?-?-?-?-?-?-?-?-?-?-?-?- JV- no lof, vagi nal bleeding, or dec fm. no complaints other than not sleeping well. 10/15/23 -?-?-?-?-?-?-?-?-?-?-?-?- 36w 1d 169 lb (+21 lb) 140/80 -?-?-?-?-?-?-?-?-?-?-?-?- 140 36 Breech -?-?-?-?-?-?-?-?-?-?-?-?- SM- no vb lof go od fm n oregular ctx no VICKERS BV to l and d for pree evaluation scheduled cs at 39 for now ordered growth US only 1 cervix on exam and 1 vagina Assessment & Plan (1) Mild pre-eclampsia: PLAN: no further exam needed today bp stable, no severe features present. 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 (3) Breech presentation: COMMENT: plan primary csection. (4) Ovarian cyst affecting in second trimester, antepartum: COMMENT: 3.9cm (5) Supervision of high-risk : COMMENT: PRR , LEANA 11/11/23, boy, Yusef (6) : QUALIFIERS: Weeks of gestation: 36 weeks Qualified Code(s): Z3A.36 - 36 weeks gestation of COMMENT: NIPT low risk, declined ntd and carrier testing. anatomy reviewed.
--- NOTE | 2023-10-16 16:41 | OB.TRI.NOTE ---
HPI - General General Date of Admission: 10/16/23 HPI Narrative NELLI STEWART, is a 28 F who presents today for an injection of celestone for mild pre-eclampsia and planned section saturday. She denies severe features and bp is stable. Maternal Data Information LEANA Calculator Estimated Delivery Date Method Current WG Current Estimate 11/11/23 LMP (Certain) 36w 2d PFSH PFSH Medical History Hx of abnormal cervical Pap smear Home Medications multivit-min no.71-iron fum 28 mg-folate no.1 1 mg-dha 300 mg capsule (PNV-[place]) cap PO 03/26/23 [History Last Taken Unknown] Allergy/AdvReac Type Severity Reaction Status Date / Time lavender (Lavandula Allergy Hives Verified 10/15/23 14:23 angustifolia) Surgical History History of appendectomy [place] teeth extracted Social History adopted: No household members: spouse current occupational status: employed 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 pets and animals: No history of recent travel: Yes ([place], [place]) out of state: Yes out of country: No sexually active: Yes Smoking Status: Never smoker alcohol intake: current alcohol intake frequency: holidays/special occasions only details: Not while substance use type: does not use well-balanced diet: daily or most days caffeine: Yes Type: coffee Number of servings: 1 eating out: rarely or never during the past year weight has: remained stable what type of physical activity do you participate in: weight training frequency: 1-2 times per week heavenly/restoration: Advent seatbelt use: always do you feel safe at home: Yes additional social history: Yusef Sutton History 1 Elective abortions Hx Para 0 Spontaneous abortions Hx # Term Pregnancies Ectopic pregnancies Hx # Pregnancies Multiple births # of living children Visit Details Expected Delivery Route/Plan Labor Preferences- CB/BF classes: declined labor support person: yusef labor intervention preferences: pain management options preferred: open to epidural cut cord/dad catch: [] : yes PP control planned: none discussed possible routes of delivery and associated risks: [] special requests: [] Plans Covid status: declined Flu vaccine: given Tdap vaccine: given Rhogam: na LARC form signed: declined movement and labor precautions reviewed. Problem list reviewed and updated with the most current plan of care details and appropriate orders placed. Relevant counseling for the gestational age provided. Continue routine care and follow up unless otherwise noted in visit notes/problem list details OB Flowsheet Initial Weight: 148 lb Date <del>?</del> EGA Weight BP Urine Prot <del>?</del> Glucose FHR FuHt Pres Dilation <del>?</del> Effaced St Visit Note 04/05/23 <del>?</del> 8w 4d 148 lb 6 oz (+6 oz) <del>?</del> 124 <del>?</del> JV- CRL consistent with LMP. LEANA 11/10/22, desires NIPT but declines carrier screen. 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 LC- no vb/cramping. no concerns today. discussed and declines afp. [facility] for anatomy scan, order placed. 05/31/23 <del>?</del> 16w 4d 150 lb 4 oz (+2 lb 4 oz) 122/80 Negative <del>?</del> Negative 156 <del>?</del> LC- no vb/cramping. no concerns. 06/28/23 <del>?</del> 20w 4d 152 lb 8 oz (+4 lb 8 oz) 134/86 Negative <del>?</del> Negative 165 <del>?</del> JV- some cramping and dark urine. ua looks normal but will send for culture. no other complaints. nurse on ms3 07/23/23 <del>?</del> 24w 1d 157 lb (+9 lb) 119/74 Negative <del>?</del> Negative 150 24 <del>?</del> no vb/cramping. good fm. discussed 28 week labs. 08/23/23 <del>?</del> 28w 4d 159 lb 4 oz (+11 lb 4 oz) 136/86 Negative <del>?</del> Negative 145 29 <del>?</del> JV- ultrasound showed an 8 cm mass that has similar echogenicity to myometrium. I suspect a fibroid, however this never showed up in her prior ultrasound. ordering MRI and will consider MFM consult. it is located on the left upper aspect of uterus. JV- ultrasound showed an 8 cm mass that has similar echogenicity to myometrium. I suspect a fibroid, however this never showed up in her prior ultrasound. ordering MRI and will consider MFM consult. it is located on the left upper aspect of uterus. Tdap given. normal 3rd trimester labs. 09/05/23 <del>?</del> 30w 3d 160 lb (+12 lb) 130/80 Negative <del>?</del> Negative 140 32 <del>?</del> SM- needs to schedule MRI. no vb lof good fm no regular ctx 09/20/23 <del>?</del> 32w 4d 164 lb 6 oz (+16 lb 6 oz) 138/88 Negative <del>?</del> Negative 142 32 <del>?</del> JV- no lof, vaginal bleeding, or dec fm. has mri scheduled! 10/02/23 <del>?</del> 34w 2d 167 lb (+19 lb) 138/86 Negative <del>?</del> Negative 150 34 <del>?</del> JV- no lof, vaginal bleeding, or dec fm. no complaints other than not sleeping well. 10/15/23 <del>?</del> 36w 1d 169 lb (+21 lb) 140/80 <del>?</del> 140 36 Breech <del>?</del> SM- no vb lof good fm n oregular ctx no VICKERS BV to l and d for pree evaluation scheduled cs at 39 for now ordered growth US only 1 cervix on exam and 1 vagina Assessment & Plan (1) Mild pre-eclampsia: PLAN: no further exam needed today bp stable, no severe features present. 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 (3) Breech presentation: COMMENT: plan primary csection. (4) Ovarian cyst affecting in second trimester, antepartum: COMMENT: 3.9cm (5) Supervision of high-risk : COMMENT: PRR , LEANA 11/11/23, boy, Yusef (6) : QUALIFIERS: Weeks of gestation: 36 weeks Qualified Code(s): Z3A.36 - 36 weeks gestation of COMMENT: NIPT low risk, declined ntd and carrier testing. anatomy reviewed.
--- OUTSIDE RECORDS SUMMARY | 2023-10-16 19:08 | XMS RPT_ITS | CCD ---
Author Name Unknown Address [id number] [place] [address] Organization [facility] Care Team Providers Care Drapery Sewer Hand Name Role Phone JITENDRA GARNER, LEROY Lovelace Unavailable [phone] Abel MCHUGH MD Unavailable AMANDA HUDSON MD Unavailable Unavailable Unavailable Medications Current Medications Medication Drug Class(es) Dates Sig (Normalized) Sig (Original) Ethinyl Estradiol / norgestimate (2 sources) Progestin, Estrogen SPRINTEC 28, 0.25-35MG-MCG (Oral Tablet) ; (0.25-35 MG-MCG) Completed/Discontinued Medications Medication Drug Class(es) Dates Sig (Normalized) Sig (Original) penicillin v potassium 500 mg oral tablet (2 sources) Start: 01-10-2015 End: 01-20-2015 take 1 tablet by mouth three times daily PENICILLIN V POTASSIUM, 500MG (Oral Tablet) ; 1 (one) Tablet three times daily for 10 days Quantity: 30 {Tablet} Refills: 0 Ordered: 12-Feb-2018 MD LEROY HAM Start: 10-Jan-2015 End: 20-Jan-2015 Status: Inactive Problems Active Problems Problem Classification Problem Date Documented Da te Episodic/Chronic Other and unspecified benign neoplasm (6 sources) Benign neoplasm of skin, site unspecified 05-16-2012 Episodic Other gastrointestinal disorders (4 sources) Celiac disease 05-02-2012 Chronic Other upper respiratory infections (4 sources) Streptococcal sore throat 01-10-2015 Episodic Past or Other Problems Problem Classification Problem Date Documented Da te Episodic/Chronic Unclassified (2 sources) sore throat - The sore throat has been occurring for 5 days. The symptoms have been associated with ear pain, while the symptoms have not been associated with fever. 01-10-2015 Unclassified (2 sources) Suture removal - The sutures were placed here. The date the sutures were placed was 05/02/12. The suture location is left arm. 05-16-2012 Unclassified (2 sources) !Patient notification of lab results 1 - Dr. Hudson. The test(s) that you had done were/was a skin pathology. Your tests showed the following abnormalities: mild atypia(precancerous) . Note for !Patient notification of lab results 1 : We need to make sure there are no other moles that look concerning. Use sunscreen 05-08-2012 Unclassified (2 sources) Skin lesion - The skin lesion is characterized as brown. The skin lesion is located on the upper extremity (left forearm). 05-02-2012 Unclassified (2 sources) [ADDITIONAL REASON] Abdominal pain - The abdominal pain has been occurring in an intermittent (eating wheat) pattern for 4 months. The abdominal pain is described as being located in the epigastrium. 05-02-2012 Results Test Name Value Interpretation Reference Range Facil ity Vital Signs Date Time Vital Sign Value Performing Clinician Faci lity 01-10-2015 09:49-0400 Body height 161.29 cm LEROY HAM MD Work Phone: [facility] [employer] 01-10-2015 09:49-0400 Body mass index (BMI) [Percentile] Per age and sex 59 % LEROY HAM MD Work Phone: [facility] [employer] 01-10-2015 09:49-0400 Body mass index (BMI) [Ratio] 22.49 kg/m2 LEROY HAM MD Work Phone: [facility] [employer] 01-10-2015 09:49-0400 Body surface area Derived from formula 1.61 m2 LEROY HAM MD Work Phone: [facility] [employer] 01-10-2015 09:49-0400 Body temperature 98.1 [degF] LEROY HAM MD [facility] En[facility] Date Encounter Type Care Provider Facility Start: 01-10-2015 End: 01-10-2015 Office outpatient visit 15 minutes [facility] HAM [facility] Start: 07-14-2012 End: 07-14-2012 Historical Summary [facility] HAM [facility] Start: 05-16-2012 End: 05-16-2012 Admission to same day surgery chaplin LEROY HAM MD [facility] Start: 05-08-2012 End: 05-08-2012 Results Review [facility] Start: 05-02-2012 End: 05-02-2012 Admission to same day surgery chaplin [facility]EROY HAM MD [facility] Start: 09-11-2010 End: 09-11-2010 Historical Summary [facility]EROY HAM MD [facility] Date Procedure Procedure Detail Performing Clinician Start: 05-16-2012 End: 05-16-2012 Removal sutures under anesthesia same surgeon AMANDA HUDSON MD Work Phone: Start: 05-02-2012 End: 05-02-2012 Exc b9 lesion mrgn xcp sk tg t/a/l 0.6-1.0 cm AMANDA HUDSON MD Work Phone: Start: 09-02-2011 End: 09-02-2011 Appendectomy LEROY HAM MD Work Phone: Plan of Treatment Date Care Activity Detail Author Start: 05-02-2012 Fluorescent nonnfct agt antb screen ea antibody RETICULIN AB Start: 02-May-2012 15:41 [facility] Start: 05-02-2012 Immunoassay analyte qual/semiqual multiple step [facility]; [facility] Start: 05-02-2012 Patient Education WOUND INSTRU CTIONS Indication: ATYPICAL MOLE Start: 02-May-2012 Instruction Type: Patient Education [facility]; [facility] Immunizations Immunization Date Immunization Notes Care Provider Jim bustamante 11-03-2008 tetanus toxoid, redu antwan diphtheria toxoid, and acellular pertussis vaccine, adsorbed LEROY HAM MD Work Phone: [facility] Social History Date Type Detail Facility Highest Education Le trini Attained Highest Education Level Attained [facility]; [facility] Tobacco use: Tobacco use: ; N ever smoker. [facility]; [facility] Work Phone: Never smoked tobacco [facility] Work Phone: Summary Purpose Family History No Family History Records Found Advance Directives No Advanced Directives Records Found Additional Source Comments INFORMATION SOURCE (unrecogn ized section and content) FOR RECORDS PERTAINING TO PATIENTS WHO ARE OR HAVE BEEN ENROLLED IN A CHEMICAL DEPENDENCY/SUBSTANCEABUSE PROGRAM, SOME INFORMATION MAY BE OMITTED. This clinical summary was aggregated from multiple sources. Caution should be exercised in using it in the provision of clinical care. This summary normalizes information from multiple sources, and as a consequence, information in this document may materially change the coding, format and clinical context of patient data. In addition, data may be omitted in some cases. CLINICAL DECISIONS SHOULD BE BASED ON THE PRIMARY CLINICAL RECORDS. [employer] [facility]. provides no warranty or guarantee of the accuracy or completeness of information in this document.
== END 2023-10-16 16:35 | disposition home or self-care (01) ==
LOC: WPOUT 15:50 → WP 15:51
PROVIDERS: PCP Family Medicine; Referring Provider Obstetrics & Gynecology; Visit Provider Obstetrics & Gynecology
DX: O14.03 Mild to moderate pre-eclampsia, third trimester (principal); Z3A.36 36 weeks gestation of pregnancy; O34.03 Maternal care for unspecified congenital malformation of uterus, third trimester; Q51.3 Bicornate uterus; O32.1XX0 Maternal care for breech presentation, not applicable or unspecified; O99.891 Other specified diseases and conditions complicating pregnancy
CPT/HCPCS: 96372; 99221; G0378; J0702

== ENCOUNTER 2023-10-17 10:55 | Inpatient (IN) | payer OTHER, SELFPAY ==
[2023-10-17] VITALS (30 sets, daily range): BP systolic 126–149; BP diastolic 86–102; PULSE 69–123; RESP 15–22; TEMP 36.1–36.6; O2SAT 95–100; BMI 29.2
[2023-10-17] MEDS: Lactated Ringers 1,000 ML 999 ML IV (11:45)
[2023-10-17 12:14] LABS: Hematocrit 38.3 % (37-47); Hemoglobin 13.1 g/dL (12.0-15.0); Mean Corp Hgb Conc 34.2 g/dL (32-36); Mean Corpuscular Hgb 30.9 pg (27.0-32.0); Mean Corpuscular Volume 90.3 fL (81-99); Mean Platelet Vol. 9.9 fl (6.2-12.0); Platelet Count 223 K/mm3 (150-450); RBC Distribution Width CV 12.7 % (11.6-14.6); RBC Distribution Width SD 41.1 fl (35.1-43.9); Red Blood Count 4.24 M/mm3 (4.2-5.4); White Blood Count 15.9 K/mm3 (4.4-11.0)
[2023-10-17 12:19] LABS: AST(SGOT) 16 U/L (15-37); Alanine Aminotransfer ALT/SGPT 22 U/L (13-56); Creatinine, Serum 0.67 mg/dL (0.55-1.02); EST Glomerular Filtration Rate 112 mL/min (>60); Est Glom Filt Rate - Afr Amer 135 mL/min (>60); Estimated Creatinine Clearance 121.13 ml/min; Uric Acid 4.4 mg/dL (2.6-6.0)
[2023-10-17 12:20] LABS: Protein, Urine (Random) 19.1 mg/dL (<11.9); Protein:Creat Ratio 171 mg/g CRE (0-200)
--- NOTE | 2023-10-17 12:43 | PCM.HP.OB ---
Documented by User: Dr. Macy Michael MD 10/17/23 18:20 HPI - General General Date of Admission: 10/17/23 HPI Narrative NELLI STEWART, is a 28 F who presents with oligo and iugr and breech for LTCS and ovarian cystectomy Maternal Data Information LEANA Calculator Estimated Delivery Date Method Current WG Current Estimate 11/11/23 LMP (Certain) 36w 3d PFSH PFSH Medical History (Updated 10/17/23 @ 12:16 by Boom Camp) Hx of abnormal cervical Pap smear Pre-eclampsia Uterine anomaly Home Medications multivit-min no.71-iron fum 28 mg-folate no.1 1 mg-dha 300 mg capsule (PNV-[place]) 1 cap PO DAILY 03/26/23 [History Last Taken 10/16/23 22:00 1 cap] Allergy/AdvReac Type Severity Reaction Status Date / Time lavender (Lavandula Allergy Hives Verified 10/17/23 12:01 angustifolia) Surgical History History of appendectomy Jeffrey teeth extracted Social History adopted: No household members: spouse current occupational status: employed 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 pets and animals: No history of recent travel: Yes ([place], [place]) out of state: Yes out of country: No sexually active: Yes Smoking Status: Never smoker alcohol intake: current alcohol intake frequency: holidays/special occasions only details: Not while substance use type: does not use well-balanced diet: daily or most days caffeine: Yes Type: coffee Number of servings: 1 eating out: rarely or never during the past year weight has: remained stable what type of physical activity do you participate in: weight training frequency: 1-2 times per week heavenly/denominational: Sikhism seatbelt use: always do you feel safe at home: Yes additional social history: Yusef Sutton History 1 Elective abortions Hx Para 0 Spontaneous abortions Hx # Term Pregnancies Ectopic pregnancies Hx # Pregnancies Multiple births # of living children Visit Details Expected Delivery Route/Plan Labor Preferences- CB/BF classes: declined labor support person: yusef labor intervention preferences: pain management options preferred: open to epidural cut cord/dad catch: [] : yes PP control planned: none discussed possible routes of delivery and associated risks: [] special requests: [] Plans Covid status: declined Flu vaccine: given Tdap vaccine: given Rhogam: na LARC form signed: declined movement and labor precautions reviewed. Problem list reviewed and updated with the most current plan of care details and appropriate orders placed. Relevant counseling for the gestational age provided. Continue routine care and follow up unless otherwise noted in visit notes/problem list details OB Flowsheet Initial Weight: 148 lb Date <del>?</del> EGA Weight BP Urine Prot <del>?</del> Glucose FHR FuHt Pres Dilation <del>?</del> Effaced St Visit Note 04/05/23 <del>?</del> 8w 4d 148 lb 6 oz (+6 oz) <del>?</del> 124 <del>?</del> JV- CRL consistent with LMP. LEANA 11/10/22, desires NIPT but declines carrier screen. 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 LC- no vb/cramping. no concerns today. discussed and declines afp. [facility] for anatomy scan, order placed. 05/31/23 <del>?</del> 16w 4d 150 lb 4 oz (+2 lb 4 oz) 122/80 Negative <del>?</del> Negative 156 <del>?</del> LC- no vb/cramping. no concerns. 10/27/23 <del>?</del> 20w 4d 152 lb 8 oz (+4 lb 8 oz) 134/86 Negative <del>?</del> Negative 165 <del>?</del> JV- some cramping and dark urine. ua looks normal but will send for culture. no other complaints. nurse on ms3 07/23/23 <del>?</del> 24w 1d 157 lb (+9 lb) 119/74 Negative <del>?</del> Negative 150 24 <del>?</del> no vb/cramping. good fm. discussed 28 week labs. 08/23/23 <del>?</del> 28w 4d 159 lb 4 oz (+11 lb 4 oz) 136/86 Negative <del>?</del> Negative 145 29 <del>?</del> JV- ultrasound showed an 8 cm mass that has similar echogenicity to myometrium. I suspect a fibroid, however this never showed up in her prior ultrasound. ordering MRI and will consider MFM consult. it is located on the left upper aspect of uterus. JV- ultrasound showed an 8 cm mass that has similar echogenicity to myometrium. I suspect a fibroid, however this never showed up in her prior ultrasound. ordering MRI and will consider MFM consult. it is located on the left upper aspect of uterus. Tdap given. normal 3rd trimester labs. 09/05/23 <del>?</del> 30w 3d 160 lb (+12 lb) 130/80 Negative <del>?</del> Negative 140 32 <del>?</del> SM- needs to schedule MRI. no vb lof good fm no regular ctx 09/20/23 <del>?</del> 32w 4d 164 lb 6 oz (+16 lb 6 oz) 138/88 Negative <del>?</del> Negative 142 32 <del>?</del> JV- no lof, vaginal bleeding, or dec fm. has mri scheduled! 10/02/23 <del>?</del> 34w 2d 167 lb (+19 lb) 138/86 Negative <del>?</del> Negative 150 34 <del>?</del> JV- no lof, vaginal bleeding, or dec fm. no complaints other than not sleeping well. 10/15/23 <del>?</del> 36w 1d 169 lb (+21 lb) 140/80 <del>?</del> 140 36 Breech <del>?</del> SM- no vb lof good fm n oregular ctx no VICKERS BV to l and d for pree evaluation scheduled cs at 39 for now ordered growth US only 1 cervix on exam and 1 vagina NST FHR Rate Baby A Baseline: 130 Variability:: Moderate Accelerations:: 15 x 15 Decelerations:: None NST Reactive:: Yes FHR Category:: Category I Uterine Activity:: irregular ROS Constitutional Constitutional: Reports systems reviewed and no addt'l complaints, except as documented Eyes Eyes: Denies change in vision ENT HEENT: Reports systems reviewed and no addt'l complaints, except as documented; Denies headache(s) Cardiovascular Cardiovascular: Reports systems reviewed and no addt'l complaints, except as documented; Denies chest pain or dyspnea Respiratory/Chest Respiratory/Chest: Reports systems reviewed and no addt'l complaints, except as documented Gastrointestinal Gastrointestinal: Reports systems reviewed and no addt'l complaints, except as documented; Denies abdominal pain Genitourinary Genitourinary: Reports systems reviewed and no addt'l complaints, except as documented, contractions Details: present (irregular) and movement Details: present; Denies dysuria or genital lesions Musculoskeletal Musculoskeletal: Reports systems reviewed and no addt'l complaints, except as documented Neurologic Neurologic: Reports systems reviewed and no addt'l complaints, except as documented Endocrine Endocrinology: Reports systems reviewed and no addt'l complaints, except as documented Vital Signs Vital Signs Vital Signs: 10/17/23 11:18 10/17/23 11:18 10/17/23 11:55 Temperature Temperature Source Pulse Rate 123 H Respiratory Rate Blood Pressure 134/89 H 134/86 H Blood Pressure Mean BP Systolic 134 134 BP Diastolic 89 86 Blood Pressure Source Blood Pressure Position Blood Pressure Location 10/17/23 11:55 10/17/23 12:00 10/17/23 12:00 Temperature 97.9 F Temperature Source Temporal Pulse Rate 103 H Respiratory Rate Blood Pressure Blood Pressure Mean BP Systolic BP Diastolic Blood Pressure Source Blood Pressure Position Blood Pressure Location 10/17/23 12:38 Temperature 97.9 F Temperature Source Temporal Pulse Rate 103 H Respiratory Rate 18 Blood Pressure 134/86 H Blood Pressure Mean 102 BP Systolic BP Diastolic Blood Pressure Source Monitor Blood Pressure Position Semi-Fowlers Blood Pressure Location Right Arm Weight Weight: 165 lb Body Mass Index (BMI) 29.2 Physical Exam Const alert, oriented x3, no apparent distress and healthy appearing HEENT normocephalic and moist oral mucous membranes Head and Scalp: atraumatic Neck full ROM, no lymphadenopathy, supple and thyroid normal General: trachea midline Lymph Lymphatic: no lymphadenopathy noted Chest inspection of chest normal Resp normal respiratory effort Cardio regular rate GI normal to inspection, nondistended, normoactive bowel sounds, soft to palpation and non-tender Inspection: gravid external exam normal Manual OB Exam: estimated gestational size appropriate, presentation breech, dilated, effaced and station Extremity normal to inspection General Extremity: Negative for edema Skin no rashes or lesions noted Neuro no focal motor deficits and deep tendon reflexes 2+ bilaterally Motor Exam: strength 5/5 throughout and clonus absent Psych mental status grossly normal Labs Labs Labs: Blood Type O POSITIVE Antibody Screen NEGATIVE Hct 38.3 % (37-47) Hgb 13.1 g/dL (12.0-15.0) Obstetrics Ultrasound Syphilis Total Ab Non-reactive Rubella IgG Antibody Reactive (Nonreactive) Hep Bs Antigen Non-Reactive (Nonreactive) Hepatitis C Antibody Non-Reactive (Nonreactive) Chlamydia DNA (ANILA) Negative (Negative) N.gonorrhoeae DNA (ANILA) Negative (Negative) HIV 1&2 Antibody Non-Reactive (Nonreactive) Glucose 1 Hr 50 gm 115 mg/dL (70-140) Assessment & Plan (1) Mild pre-eclampsia: (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 (3) Breech presentation: COMMENT: plan primary csection. (4) Ovarian cyst affecting in second trimester, antepartum: COMMENT: 3.9cm (5) Supervision of high-risk : COMMENT: PRR , LEANA 11/11/23, boy, Yusef (6) : QUALIFIERS: Weeks of gestation: 36 weeks Qualified Code(s): Z3A.36 - 36 weeks gestation of COMMENT: NIPT low risk, declined ntd and carrier testing. anatomy reviewed. PLAN: Plan admit for LTCS and ovarian cytectomy Documented by User: Dr. Faith Johnson DO 10/17/23 17:46 HPI - General General Date of Admission: 10/17/23 Maternal Data Information LEANA Calculator Estimated Delivery Date Method Current WG Current Estimate 11/11/23 LMP (Certain) 36w 3d 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 pets and animals: No history of recent travel: Yes ([place], [place]) out of state: Yes out of country: No sexually active: Yes Smoking Status: Never smoker alcohol intake: current alcohol intake frequency: holidays/special occasions only details: Not while substance use type: does not use well-balanced diet: daily or most days caffeine: Yes Type: coffee Number of servings: 1 eating out: rarely or never during the past year weight has: remained stable what type of physical activity do you participate in: weight training frequency: 1-2 times per week heavenly/denominational: Sikhism seatbelt use: always do you feel safe at home: Yes additional social history: Yusef Sutton History 1 Elective abortions Hx Para 0 Spontaneous abortions Hx # Term Pregnancies Ectopic pregnancies Hx # Pregnancies Multiple births # of living children Visit Details Expected Delivery Route/Plan Labor Preferences- CB/BF classes: declined labor support person: yusef labor intervention preferences: pain management options preferred: open to epidural cut cord/dad catch: [] : yes PP control planned: none discussed possible routes of delivery and associated risks: [] special requests: [] Plans Covid status: declined Flu vaccine: given Tdap vaccine: given Rhogam: na LARC form signed: declined movement and labor precautions reviewed. Problem list reviewed and updated with the most current plan of care details and appropriate orders placed. Relevant counseling for the gestational age provided. Continue routine care and follow up unless otherwise noted in visit notes/problem list details OB Flowsheet Initial Weight: 148 lb Date <del>?</del> EGA Weight BP Urine Prot <del>?</del> Glucose FHR FuHt Pres Dilation <del>?</del> Effaced St Visit Note 04/05/23 <del>?</del> 8w 4d 148 lb 6 oz (+6 oz) <del>?</del> 124 <del>?</del> JV- CRL consistent with LMP. LEANA 11/10/22, desires NIPT but declines carrier screen. 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 LC- no vb/cramping. no concerns today. discussed and declines afp. [facility] for anatomy scan, order placed. 05/31/23 <del>?</del> 16w 4d 150 lb 4 oz (+2 lb 4 oz) 122/80 Negative <del>?</del> Negative 156 <del>?</del> LC- no vb/cramping. no concerns. 06/28/23 <del>?</del> 20w 4d 152 lb 8 oz (+4 lb 8 oz) 134/86 Negative <del>?</del> Negative 165 <del>?</del> JV- some cramping and dark urine. ua looks normal but will send for culture. no other complaints. nurse on ms3 07/23/23 <del>?</del> 24w 1d 157 lb (+9 lb) 119/74 Negative <del>?</del> Negative 150 24 <del>?</del> no vb/cramping. good fm. discussed 28 week labs. 08/23/23 <del>?</del> 28w 4d 159 lb 4 oz (+11 lb 4 oz) 136/86 Negative <del>?</del> Negative 145 29 <del>?</del> JV- ultrasound showed an 8 cm mass that has similar echogenicity to myometrium. I suspect a fibroid, however this never showed up in her prior ultrasound. ordering MRI and will consider MFM consult. it is located on the left upper aspect of uterus. JV- ultrasound showed an 8 cm mass that has similar echogenicity to myometrium. I suspect a fibroid, however this never showed up in her prior ultrasound. ordering MRI and will consider MFM consult. it is located on the left upper aspect of uterus. Tdap given. normal 3rd trimester labs. 09/05/23 <del>?</del> 30w 3d 160 lb (+12 lb) 130/80 Negative <del>?</del> Negative 140 32 <del>?</del> SM- needs to schedule MRI. no vb lof good fm no regular ctx 09/20/23 <del>?</del> 32w 4d 164 lb 6 oz (+16 lb 6 oz) 138/88 Negative <del>?</del> Negative 142 32 <del>?</del> JV- no lof, vaginal bleeding, or dec fm. has mri scheduled! 10/02/23 <del>?</del> 34w 2d 167 lb (+19 lb) 138/86 Negative <del>?</del> Negative 150 34 <del>?</del> JV- no lof, vaginal bleeding, or dec fm. no complaints other than not sleeping well. 10/15/23 <del>?</del> 36w 1d 169 lb (+21 lb) 140/80 <del>?</del> 140 36 Breech <del>?</del> SM- no vb lof good fm n oregular ctx no VICKERS BV to l and d for pree evaluation scheduled cs at 39 for now ordered growth US only 1 cervix on exam and 1 vagina Labs Labs Labs: Blood Type O POSITIVE Antibody Screen NEGATIVE Hct 38.3 % (37-47) Hgb 13.1 g/dL (12.0-15.0) Obstetrics Ultrasound Syphilis Total Ab Non-reactive Rubella IgG Antibody Reactive (Nonreactive) Hep Bs Antigen Non-Reactive (Nonreactive) Hepatitis C Antibody Non-Reactive (Nonreactive) Chlamydia DNA (ANILA) Negative (Negative) N.gonorrhoeae DNA (ANILA) Negative (Negative) HIV 1&2 Antibody Non-Reactive (Nonreactive) Glucose 1 Hr 50 gm 115 mg/dL (70-140) Assessment & Plan (1) Mild pre-eclampsia: (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 (3) Breech presentation: COMMENT: plan primary csection. (4) Ovarian cyst affecting in second trimester, antepartum: COMMENT: 3.9cm (5) Supervision of high-risk : COMMENT: PRR , LEANA 11/11/23, boy, Yusef (6) : QUALIFIERS: Weeks of gestation: 36 weeks Qualified Code(s): Z3A.36 - 36 weeks gestation of COMMENT: NIPT low risk, declined ntd and carrier testing. anatomy reviewed.
[2023-10-17 12:51] LABS: Syphilis Antibodies Non-reactive
[2023-10-17] MEDS: Acetaminophen 500 MG Tablet 1000 MG PO ×2 (12:52→19:58)
[2023-10-17] MEDS: Lactated Ringers 1,000 ML 150 ML IV (13:45)
--- OUTSIDE RECORDS SUMMARY | 2023-10-17 14:06 | XMS RPT_ITS | CCD ---
Author Name Unknown Address [id number] [place] [address] Organization [facility] Care Team Providers Care Converting Technician Name Role Phone JITENDRA GARNER, LEROY [place] Unavailable [phone] Abel MCHUGH MD Unavailable [phone] AMANDA HUDSON MD Unavailable [phone] Unavailable Unavailable Medications Current Medications Medication Drug [...] 161.29 cm LEROY HAM MD Work Phone: [employer]; [facility] 01-10-2015 09:49-0400 Body mass index (BMI) [Percentile] Per age and sex 59 % LEROY HAM MD Work Phone: [employer]; [employer] [facility] 01-10-2015 09:49-0400 Body mass index (BMI) [Ratio] 22.49 kg/m2 LEROY HAM MD Work Phone: [facility]; [employer] [facility] [employer] [facility] 01-10-2015 09:49-0400 Body surface area Derived from formula 1.61 m2 LEROY HAM MD Work Phone: [facility]; [facility] [facility] 01-10-2015 09:49-0400 Body temperature 98.1 [degF] LEROY HAM MD Work Phone: [facility]; [employer] [facility] [employer] Encounters Encounter Date Encounter Type Care Provider Facility Start: 01-10-2015 End: 01-10-2015 Office outpatient visit 15 minutes LEROY HAM MD [facility] Start: 07-14-2012 End: 07-14-2012 Historical Summary LEROY HAM MD Work Phone: [facility] [employer] [facility] Start: 05-16-2012 End: 05-16-2012 Admission to same day surgery oran [facility]AM [facility] Start: 05-08-2012 End: 05-08-2012 Results Review LEROY HAM MD [facility]: [facility] Start: 05-02-2012 End: 05-02-2012 Admission to same day surgery center LEROY HAM MD Work Phone: [facility] [employer] [facility] Start: 09-11-2010 End: 09-11-2010 Historical Summary LEROY HAM MD Work Phone: [facility] [employer] [facility] Procedures Date Procedure Procedure Detail Performing Clinician [...] antibody RETICULIN AB Start: 02-May-2012 15:41 Request [facility]; [facility] Start: 05-02-2012 Immunoassay analyte qual/semiqual multiple step [facility] Start: 05-02-2012 Patient Education WOUND INSTRU CTIONS Indication: ATYPICAL MOLE Start: 02-May-2012 Instruction Type: Patient Education [facility]; [facility] Immunizations Immunization Date Immunization Notes Care Provider Fa [facility] 11-03-2008 tetanus toxoid, redu antwan diphtheria toxoid, and acellular pertussis vaccine, adsorbed LEROY HAM MD Work Phone: [facility]; [facility] Social History Date Type Detail Facility Highest Education Le trini Attained Highest Education Level Attained [facility]; [facility] Tobacco use: Tobacco use: ; N ever smoker. [facility]; [facility] Female [facility]; [facility] Work Phone: Never smoked tobacco [facility]; [facility] Work Phone: Summary Purpose Family History [...] BE BASED ON THE PRIMARY CLINICAL RECORDS. [employer] [facility]. provides no warranty or guarantee of the accuracy or completeness of information in this document.
[2023-10-17] MEDS: Sodium Citrate/Citric Acid 30 ML UDC PO (15:32)
[2023-10-17] MEDS: Cefazolin 2 GM in 0.9% Normal Saline (100mL Bag) 100 ML IV (16:20)
[2023-10-17] MEDS: Oxytocin 15 Units/NS 250ml 15 UNITS/250 ML IV.SOLN 83 UNITS IV ×2 (16:40→18:00)
--- NOTE | 2023-10-17 16:40 | OV_PTH ---
PATHOLOGY RESULTS PATIENT: NELLI STEWART LOC: WP U#:[id number] AGE/SX: 28/F ROOM: WP015 RE10/17/[address]: Dr. Macy Michael MD : 1995 BED: 1 DIS: 10/19/2023 SPEC #: [id number] RECD: 10/18/23 07:30 STATUS: ROLAND GUDINOEfrain #: [id number] LUDMILA: 10/17/23 16:[address]: Macy Michael DEPT: SURGICAL PATHOLOGY RECD BY: Meggan Mayers ENTERED: 10/18/23 07:30 SP TYPE: OVARY OTHR DR: Dr. Jerry Medley MD Tissues: CYST Procedures: Surgery Specimen Level IV HEADER OPERATION: Primary section, cystectomy PRE-OP DIAGNOSIS: Left ovarian cyst TISSUE SUBMITTED: Left ovarian cyst MICROSCOPIC DIAGNOSIS Left ovarian cyst, cystectomy: Simple serous cystadenoma. See comment. SAMANTHA:kvng 10/21/2023 COMMENT Case has been reviewed in consultation with Dr. Bowers who concurs with the above diagnosis. IDC:AM MICROSCOPIC DESCRIPTION Slides are reviewed. GROSS DESCRIPTION Received in fixative is one container labeled with the patient's name and designated left ovarian cyst. The specimen consists of a previously opened cyst which entirely consists of cyst wall measuring 4.0 x 2.0 x 0.5 cm. The cyst wall appears to be smooth. The entire specimen is submitted in three cassettes. / SAMANTHA:kvng 10/18/2023 TC:1 CPT: 32075
[2023-10-17] MEDS: TRANEXAMIC ACID 1,000 MG in 0.9% Normal Saline (100mL Bag) 100 ML 440 MG IV (16:57)
[2023-10-17] MEDS: Methylergonovine 0.2 MG/ML Ampul 0.200000000000000011 MG IM (17:12)
--- NOTE | 2023-10-17 18:20 | OP.PCM_ITS ---
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 Dhillon catheter was placed. The patient was placed in the dorsal supine position with leftward tilt. Patient was prepped and draped in the normal sterile fashion. Pfannenstiel skin incision was made with the scalpel and carried through to the underlying layer of fascia with the scalpel. Fascia was nicked in the midline and the incision extended laterally. The rectus bellies were dissected off superiorly and inferiorly with out complication both sharply and bluntly. The peritoneum was entered digitally. The incision was stretched and a low transverse uterine incision on the right uterine horn was made with the scalpel. The buttox was delivered atraumatically and the right and left legs were swept anteriorly and delivered, followed by the body and the arms which were swept anteriorly and delivered. Gentle traction was placed on the mentum to flex the head which was delivered without complication. The placenta was delivered spontaneously immediately following and was noted to be intact and have a three-vessel cord. The uterus was exteriorized cleared of all clots and debris, and the incision was closed in a single layer closure using #1 Monocryl. additional suture used on the left side of the incision for hemostasis. left uterine horn noted to be very inferior and buried in the broad ligament, and left ovary had an ovarian cyst coming off the ovary, which was drained of clear fluid, dissected out of the mesosalpinx, and clamped sutured and cut off from the base. this didn't compromise any integrity of the left tube. hemostasis noted. The uterus was returned to the maternal abdomen and gutters were cleared of all clots and debris. The peritoneum was closed with 3-0 Monocryl in a running fashion. Fascia was closed with 0 PDS in a running fashion. Subcutaneous tissue was copiously irrigated and the skin was closed with 3-0 Monocryl in a subcuticular fashion. Mepilex dressing was applied without complication. Patient was taken to recovery in stable condition. Amniotic Membrane Rupture Type: Artificial Amniotic Fluid Description: Clear Placenta Disposition: [facility] Cord Vessel Description: 3 Vessels Cord Entanglement: Around neck x 1, loose Delayed Cord Clamping: Yes Complications Risks of Surgery Discussed w/Patient: Bleeding, Infection, Need for Future C-S ections and Injury to surrounding structure(s) including bowel and bladder Vaginal Delivery Complication Complications: None Admit VTE Documentation VTE Present on Admission: No VTE Mechan Device Prophylaxis: SCD's Procedures Urinary/Genital 52xxx-59xxx: 69936 Delivery [facility]
--- NOTE | 2023-10-17 18:27 | PCM.DC ---
Discharge Instructions Diet Discharge Diet: No restrictions Activity Discharge Activity: May Not Drive (for 2 weeks or while taking narcotic pain medications.), May Shower and May Take a Tub Bath (in 7 days) May shower in (days): 0 May resume sexual activity in: 4-6 weeks Weight Bearing Status: Full weight bearing Lifting Restrictions: 20 pounds Dressing / Incision Call your doctor if your incision/area has: Continuous Slow Oozing, Sudden Increased Bleeding, Increased Pain/ Swelling, Increased Redness and Foul Smelling Discharge Call your doctor if you observe: Fever of 101 or Higher and Using more than 1 pad per hour (for 2 hours) Suture Line Care: Avoid Pulling/Pushing and Avoid Pinching/Bending Cleanse incision/area with: Soap & Water and Keep Dressing Clean & Dry Follow Up Care Please Follow Up With: Macy Michael MD When: Call [phone] to make an appointment for an incision check in 1-2 weeks. Test Results: Test results from this visit will be discussed in further detail at your follow-up appointment, if applicable. Discharge Plan Admission Admit Date/Time: 10/17/23 10:55 Attending Provider: Macy Michael Primary Care Provider: Jerry Medley Discharge Orders/Prescriptions Prescriptions: New oxycodone-acetaminophen [Percocet] 5-325 mg tablet 1 tab PO Q6H PRN (Reason: pain) 7 Days Qty: 20 0RF naproxen [naproxen] 500 mg tablet 500 mg PO BID PRN PRN (Reason: Pain) Qty: 30 1RF No Action PNV-[place] 28-1-300 mg capsule 1 cap PO DAILY Referrals / Follow Up: Jerry Medley MD [Primary Care Provider] - Disposition Disposition (needs filled in before D/C Order can be placed): Home, Self Care
[2023-10-17] MEDS: Ketorolac 30 MG/ML Syringe IV (18:45)
[2023-10-17 18:53] LABS: Pathology Specimen OB SEE PATHOLOGY REPORT
[2023-10-17] MEDS: Lactated Ringers 1,000 ML 100 ML IV (21:10)
[2023-10-18] VITALS (13 sets, daily range): BP systolic 127–145; BP diastolic 82–94; PULSE 71–89; RESP 16; TEMP 36.1–37; O2SAT 95–100
--- NOTE | 2023-10-18 00:26 | NURSING ---
moderate amount of new drainage circled. RN to recheck dressing in an hour. Abdominal binder and ABD pad reinforced.
[2023-10-18] MEDS: 0.9% Saline Lock 10 ML Syringe IV ×3 (00:50→12:29)
[2023-10-18] MEDS: Ketorolac 30 MG/ML Syringe IV ×3 (00:50→12:27)
[2023-10-18] MEDS: Ondansetron 4 MG/2 ML Vial IV (01:31)
[2023-10-18] MEDS: Acetaminophen 500 MG Tablet 1000 MG PO ×3 (02:13→15:55)
[2023-10-18 04:39] LABS: Hematocrit 34.7 % (37-47); Hemoglobin 11.8 g/dL (12.0-15.0); Mean Corpuscular Hgb 30.8 pg (27.0-32.0); Mean Corpuscular Volume 90.6 fL (81-99); Mean Platelet Vol. 9.9 fl (6.2-12.0); Platelet Count 191 K/mm3 (150-450); RBC Distribution Width CV 12.8 % (11.6-14.6); RBC Distribution Width SD 41.7 fl (35.1-43.9); Red Blood Count 3.83 M/mm3 (4.2-5.4); White Blood Count 18.8 K/mm3 (4.4-11.0)
[2023-10-18] MEDS: Senna/Docusate Sodium 1 Tablet PO (12:27)
[2023-10-18] MEDS: Loratadine 10 MG Tablet PO (16:58)
[2023-10-18] MEDS: Naproxen 500 MG Tablet PO (18:29)
[2023-10-19] VITALS (7 sets, daily range): BP systolic 135–143; BP diastolic 81–91; PULSE 74–109; RESP 16; TEMP 36.3–36.7; O2SAT 99
[2023-10-19] MEDS: Acetaminophen 500 MG Tablet 1000 MG PO ×3 (00:06→11:25)
[2023-10-19] MEDS: Naproxen 500 MG Tablet PO ×2 (03:18→11:27)
[2023-10-19] MEDS: Loratadine 10 MG Tablet PO (11:26)
== END 2023-10-19 16:00 | disposition home or self-care (01) | DRG 787 ==
PROVIDERS: Admitting Provider Obstetrics & Gynecology; PCP Family Medicine; Visit Provider Obstetrics & Gynecology
DX: O32.1XX0 Maternal care for breech presentation, not applicable or unspecified (principal); O41.03X0 Oligohydramnios, third trimester, not applicable or unspecified; O34.83 Maternal care for other abnormalities of pelvic organs, third trimester; N83.202 Unspecified ovarian cyst, left side; Q51.3 Bicornate uterus; O14.04 Mild to moderate pre-eclampsia, complicating childbirth; Z37.0 Single live birth; O34.03 Maternal care for unspecified congenital malformation of uterus, third trimester; Z3A.36 36 weeks gestation of pregnancy
CPT/HCPCS: 59025; 59050; 82565; 82570; 84156; 84450; 84460; 84550; 85027; 86780; 86850; 86900; 86901; 88304; 88305; 99221; J7120; A4216; G0378; J2405

== ENCOUNTER → 2023-10-17 | Outpatient (CLI) | payer OTHER, SELFPAY ==
--- NOTE | 2023-10-17 09:43 | US_ITS ---
STUDY: SECOND AND THIRD TRIMESTER OBSTETRICAL ULTRASOUND - LIMITED REASON FOR EXAM: Female, 28 years old growth LMP: February 04, 2023. PRIOR ULTRASOUND: Comparison is made with prior study dated August 06, 2023. TECHNIQUE: Transabdominal TECHNICAL QUALITY: Adequate. FINDINGS: There is a single intrauterine fetus. The fetus is in a breech presentation. There is demonstrated cardiac activity with a heart rate of 150 bpm. There is decreased amniotic fluid volume consistent with oligohydramnios. The largest amniotic fluid pocket measures 2.7 cm x 1.7 cm. The amniotic fluid index (BLANK) is 3.3 cm. The placenta is right lateral in location and is not low lying. There are Grade 2 placental changes. BIOMETRY: BPD: 8.22 cm: 33 weeks, 0 days HC: 31.28 cm: 35 weeks, 0 days AC: 30.83 cm: 34 weeks, 5 days FL: 6.35 cm: 32 weeks, 6 days Age by LMP: 36 weeks, 3 days. LEANA by LMP: November 11, 2023. age by prior US: 36 weeks, 6 days. LEANA by prior US: November 08, 2023. age by current US: 34 weeks, 4 days. LEANA by current US: November 24, 2023. Estimated weight: 2337 grams, +/- 350 grams, 7 percentile. US/OB Limited With Biometrics IMPRESSION: Single live uterine gestation with mean gestational age of 36 weeks and 6 days. Measurements obtained today fall in the 7th percentile. Oligohydramnios. Electronically Signed: Arsalan Jaffe MD at 11:20 EST ,
--- OUTSIDE RECORDS SUMMARY | 2023-10-17 10:34 | XMS RPT_ITS | CCD ---
Author Name Unknown Address [address] [place] [address] Organization [facility] Care Team Providers Care Account Contact Associate Name Role Phone JITENDRA GARNER, LEROY Lovelace Unavailable [phone] Abel MCHUGH MD Unavailable AMANDA HUDSON MD Unavailable [phone] Unavailable Unavailable Medications Current Medications Medication Drug Class(es) Dates Sig (Normalized) Sig (Original) Ethinyl Estradiol / norgestimate (3 sources) Progestin, Estrogen SPRINTEC 28, 0.25-35MG-MCG (Oral Tablet) ; (0.25-35 MG-MCG) Completed/Discontinued Medications Medication Drug Class(es) Dates Sig (Normalized) Sig (Original) penicillin v potassium 500 mg oral tablet (3 sources) Start: 01-10-2015 End: 01-20-2015 take 1 tablet by mouth three times daily PENICILLIN V POTASSIUM, 500MG (Oral Tablet) ; 1 (one) Tablet three times daily for 10 days Quantity: 30 {Tablet} Refills: 0 Ordered: 12-Feb-2018 MD LEROY HAM Start: 10-Jan-2015 End: 20-Jan-2015 Status: Inactive Problems Active Problems Problem Classification Problem Date Documented Da te Episodic/Chronic Other and unspecified benign neoplasm (9 sources) Benign neoplasm of skin, site unspecified 05-16-2012 Episodic Other gastrointestinal disorders (6 sources) Celiac disease 05-02-2012 Chronic Other upper respiratory infections (6 sources) Streptococcal sore throat 01-10-2015 Episodic Past or Other Problems Problem Classification Problem Date Documented Da te Episodic/Chronic Unclassified (3 sources) sore throat - The sore throat has been occurring for 5 days. The symptoms have been associated with ear pain, while the symptoms have not been associated with fever. 01-10-2015 Unclassified (3 sources) Suture removal - The sutures were placed here. The date the sutures were placed was 05/02/12. The suture location is left arm. 05-16-2012 Unclassified (3 sources) !Patient notification of lab results 1 [...] as being located in the epigastrium. 05-02-2012 Unclassified (1 source) Abdominal pain - The abdominal pain has been occurring in an intermittent (eating wheat) pattern for 4 months. The abdominal pain is described as being located in the epigastrium. 05-02-2012 Unclassified (1 source) [ADDITIONAL REASON] Skin lesion - The skin lesion is characterized as brown. The skin lesion is located on the upper extremity (left forearm). 05-02-2012 Results Test Name Value Interpretation Reference Range Facil ity Vital Signs Date Time Vital Sign Value Performing Clinician Faci lity 01-10-2015 09:49-0400 Body height 161.29 cm LEROY HAM MD Work Phone: [employer] 01-10-2015 09:49-0400 Body mass index (BMI) [Percentile] Per age and sex 59 % LEROY HAM MD Work Phone: [employer]; [facility] 01-10-2015 09:49-0400 Body mass index (BMI) [Ratio] 22.49 kg/m2 LEROY HAM MD Work Phone: [employer] [facility]; [facility] [employer] [facility] 01-10-2015 09:49-0400 Body surface area Derived from formula 1.61 m2 LREOY HAM MD Work Phone: [facility]; [facility] 01-10-2015 09:49-0400 Body temperature 98.1 [degF] LEROY HAM MD Work Phone: [facility]; [facility] [employer] Encounters Encounter Date Encounter Type Care Provider Facility Start: 01-10-2015 End: 01-10-2015 Office outpatient visit 15 minutes LEROY HAM MD [facility] Start: 07-14-2012 End: 07-14-2012 Historical Summary LEROY HAM MD Work Phone: [facility] [employer] [facility] Start: 05-16-2012 End: 05-16-2012 Admission to same day [place] LEROY HAM MD [facility] Start: 05-08-2012 End: 05-08-2012 Results Review [facility]AM MD [facility] Start: 05-02-2012 End: 05-02-2012 Admission to same day surgery center LEROY HAM MD Work Phone: [facility] [employer] [facility] Start: 09-11-2010 End: 09-11-2010 Historical Summary LEROY HAM MD Work Phone: [facility] [employer] [facility] Procedures Date Procedure Procedure Detail Performing Clinician [...] antibody RETICULIN AB Start: 02-May-2012 15:41 Request [facility]; [facility] Start: 05-02-2012 Immunoassay analyte qual/semiqual multiple step [facility]; [facility] Start: 05-02-2012 Patient Education WOUND INSTRU CTIONS Indication: ATYPICAL MOLE Start: 02-May-2012 Instruction Type: Patient Education [facility]; [facility] Immunizations Immunization Date Immunization Notes Care Provider [facility] 11-03-2008 tetanus toxoid, redu antwan diphtheria toxoid, and acellular pertussis vaccine, adsorbed LEROY HAM MD Work Phone: [facility]; [facility] Social History Date Type Detail Facility Highest Education Le trini Attained Highest Education Level Attained [facility]; [facility] Tobacco use: Tobacco use: ; N ever smoker. [facility]; [facility] Female [facility]; [facility] Work Phone: Never smoked tobacco [facility]; [facility] Work Phone: Summary Purpose Family History [...] BE BASED ON THE PRIMARY CLINICAL RECORDS. [facility]. provides no warranty or guarantee of the accuracy or completeness of information in this document.
== END | disposition home or self-care (01) ==
LOC: US 09:42
PROVIDERS: PCP Family Medicine; Referring Provider Obstetrics & Gynecology; Visit Provider Obstetrics & Gynecology
DX: O32.1XX0 Maternal care for breech presentation, not applicable or unspecified (principal); Q51.3 Bicornate uterus; O99.891 Other specified diseases and conditions complicating pregnancy; Z3A.00 Weeks of gestation of pregnancy not specified
CPT/HCPCS: 76816

== ENCOUNTER 2023-12-26 09:02 | Emergency (ER) | payer OTHER, SELFPAY ==
[2023-12-26 09:02] VITALS: BP 161/97; PULSE 97; RESP 16; TEMP 36.6; O2SAT 100
--- NOTE | 2023-12-26 09:26 | EX.ED.UPPERE ---
HPI History of Present Illness Chief Complaint: Upper Extremity Injury Informant: patient Narrative Narrative: 28-year-old female states that she was loading her into the car through the dog toy and was walking when she slipped and fell concrete. She notes injury to the right wrist. She tore the pant leg of the left knee area. She states that her right little pinky feels numb. She denies any other injuries. She is not breast-feeding. [facility] Medical History Hx of abnormal cervical Pap smear Pre-eclampsia Uterine anomaly Home Medications multivit-min no.71-iron fum 28 mg-folate no.1 1 mg-dha 300 mg capsule (PNV-Sandy) 1 cap PO DAILY 03/26/23 [History Last Taken 10/16/23 22:00 1 cap] Allergy/AdvReac Type Severity Reaction Status Date / Time lavender (Lavandula Allergy Hives Verified 12/26/23 09:03 angustifolia) Surgical History delivery delivered History of appendectomy Status post ovarian cystectomy (~10/17/23) [place] teeth extracted Social History adopted: No household members: spouse number of children: 1 current occupational status: employed 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 pets and animals: No history of recent travel: Yes ([place], [place]) out of state: Yes out of country: No sexually active: Yes Smoking Status: Never smoker alcohol intake: current alcohol intake frequency: holidays/special occasions only details: Not while substance use type: does not use well-balanced diet: daily or most days caffeine: Yes Type: coffee Number of servings: 1 eating out: rarely or never during the past year weight has: remained stable what type of physical activity do you participate in: weight training frequency: 1-2 times per week heavenly/confucianism: Alevism seatbelt use: always do you feel safe at home: Yes additional social history: [place] ROS ROS ED Constitutional Constitutional ED: Denies chills, fever(s) or weight loss Eyes Eyes: Denies change in vision or diplopia ENT ENT ED: Denies ear pain, rhinorrhea or sore throat Cardiovascular Cardiovascular: Denies chest pain, orthopnea, palpitations or racing heartbeat Respiratory/Chest Respiratory/Chest: Denies cough, dyspnea or orthopnea Gastrointestinal Gastrointestinal: Denies abdominal pain, diarrhea, nausea or vomiting Genitourinary Genitourinary ED: Denies dysuria, hematuria or urinary frequency Musculoskeletal Musculoskeletal: Reports other Details: Right wrist pain ; Denies arthralgias, back pain, myalgias or neck pain Integumentary Denies abscess or rash Neurologic Neurologic: Reports other Details: See history of present illness ; Denies headache(s) or weakness Psychiatric Psychiatric: Denies anxiety, depression, suicidal ideation or suicidal thoughts Endocrine Endocrinology: Denies polydipsia, polyphagia or polyuria Allergic/Immunologic Allergic/Immunologic ED: Denies mouth swelling, tongue swelling or urticaria EXAM Physical Exam Const Vital Signs: 12/26/23 09:02 Temperature 98 F Temperature Source Temporal Pulse Rate 97 Respiratory Rate 16 Blood Pressure 161/97 H Blood Pressure Mean 118 Pulse Ox 100 Oxygen Delivery Method Room Air Positive well nourished and well developed General Appearance ED: well developed HEENT Reports normocephalic, head/scalp atraumatic and moist mucous membranes Eyes PERRL and EOMs intact bilaterally Neck no lymphadenopathy, supple and no JVD Resp normal respiratory effort and clear to auscultation bilaterally Cardio regular rate, regular rhythm and no murmurs GI normal to inspection, nondistended, normoactive bowel sounds and non-tender Palpation: soft Back/Spine no CVA tenderness and normal ROM Extremity Extremity Narrative: Patient notes pain with movement of the right wrist. No obvious deformity. No significant swelling or ecchymosis seen. There is sensation to the little finger but she reports decreased sensation. Vascularly appears intact. left knee does not appear injured General Extremety ED: Negative for edema General Extremity: Negative for edema Neuro oriented x3 and CN's II-XII intact bilaterally Sensorium / Orientation: alert Motor Exam: strength 5/5 throughout Psych mental status grossly normal Mood & Affect: Negative for depressed or tearful Skin no rashes or lesions noted and no wounds MDM MDM MDM Narrative Medical decision making narrative: Minnie 10 interpretation of the plain films of the right wrist is an acute fracture of the distal radius. Patient was given Motrin at her request. She was placed in a anterior posterior plaster splint made by this physician. Neurovascular intact pre and post application. I will write for the patient have pain medication. I will refer to Dr. Middleton currently on-call for orthopedics that she does not have a local orthopedist. Patient to follow-up return if worsening or concerns History & Record Review Discussion w/independent historian: Patient Discharge Plan Triage Chief Complaint: Upper Extremity Injury ED Provider: Vazquez Lyon Dx/Rx/DC Orders Clinical Impression: Fracture of wrist, Fall Instructions: ED Fracture, Wrist, General Prescriptions: No Action PNV-Sandy 28-1-300 mg capsule 1 cap PO DAILY Primary Care Provider: Jerry Medley Referrals: Jerry Medlye MD [Primary Care Provider] - Disposition Disposition: Home, Self Care
[2023-12-26] MEDS: Ibuprofen 600 MG Tablet PO (09:35)
--- NOTE | 2023-12-26 09:45 | RAD_ITS ---
STUDY: X-RAY - RIGHT WRIST REASON FOR EXAM: Female, 28 years old. Wrist injury following a fall. TECHNIQUE: 3 view(s) of the wrist were obtained. COMPARISON: None. FINDINGS: Nondisplaced comminuted fracture of the distal radial metaphysis extending to the articular surface. Normal radiocarpal articulation. Subluxation of the distal radial ulnar joint. Normal carpal bones. Normal carpal articulations. Normal carpometacarpal articulation of the thumb. Normal second through fifth carpometacarpal articulations. Normal visualized metacarpal bones. Soft tissue swelling. RAD/Wrist min 3 Views IMPRESSION: Nondisplaced, fracture of the distal radial metaphysis extending to the articular surface with subluxation of the distal radial ulnar joint. Soft tissue swelling. Electronically Signed: Arsalan Jaffe MD at 10:39 EDT ,
[2023-12-26 10:31] VITALS: BMI 26.6
[2023-12-26 10:36] VITALS: BP 158/88; PULSE 92; RESP 16; TEMP 36.6; O2SAT 100
== END 2023-12-26 10:37 | disposition home or self-care (01) ==
PROVIDERS: Emergency Provider Emergency Medicine; PCP Family Medicine; Visit Provider Emergency Medicine
DX: S52.591A Other fractures of lower end of right radius, initial encounter for closed fracture (principal); W01.0XXA Fall on same level from slipping, tripping and stumbling without subsequent striking against object, initial encounter
CPT/HCPCS: 29125; 73110; 99282

== ENCOUNTER → 2024-02-10 | Outpatient (CLI) | payer OTHER, SELFPAY ==
[2024-02-10 07:50] LABS: hCG Titer Quant., Serum 7752 mIU/mL (1-3)
== END | disposition home or self-care (01) ==
LOC: LAB 06:42
PROVIDERS: PCP Family Medicine; Referring Provider Registered Nurse; Visit Provider Registered Nurse
DX: O20.9 Hemorrhage in early pregnancy, unspecified (principal); Z3A.00 Weeks of gestation of pregnancy not specified
CPT/HCPCS: 36415; 84702

== ENCOUNTER → 2024-02-12 | Outpatient (CLI) | payer OTHER, SELFPAY ==
[2024-02-12 10:48] LABS: hCG Titer Quant., Serum 13345 mIU/mL (1-3)
== END | disposition home or self-care (01) ==
LOC: LAB 07:58
PROVIDERS: PCP Family Medicine; Referring Provider Registered Nurse; Visit Provider Registered Nurse
DX: O20.9 Hemorrhage in early pregnancy, unspecified (principal); Z3A.00 Weeks of gestation of pregnancy not specified
CPT/HCPCS: 36415; 84702

== ENCOUNTER → 2024-02-27 | Outpatient (CLI) | payer OTHER, SELFPAY ==
--- NOTE | 2024-02-27 16:32 | US_ITS ---
STUDY: FIRST TRIMESTER OBSTETRICAL ULTRASOUND REASON FOR EXAM: Female, 28 years old patient presents for dating US. LMP: February 03, 2024. TECHNIQUE: Transvaginal TECHNICAL QUALITY: Adequate. PRIOR ULTRASOUND: None. FINDINGS: There is visualization of a single gestational sac in a normal intrauterine position. The mean sac diameter (MSD) measures 4.1 cm, indicating an estimated gestational age (EGA) of 9 weeks, 4 days. The gestational sac shape is within normal limits. There is a visualized yolk sac. The yolk sac measures 3.3 mm. The placenta is non-visualized. There is visualization of a live embryo. The crown-rump length (CRL) measures 1.6 cm, indicating an estimated gestational age (EGA) of 7 weeks, 6 days. There is demonstrated cardiac activity with a heart rate of 169 bpm. The estimated gestation age (EGA) by LMP is 3 weeks, 3 days. The estimated date of delivery (LEANA) by LMP is November 09, 2024. The estimated gestation age (EGA) by US is 8 weeks, 5 days. The estimated date of delivery (LEANA) by US is October 03, 2024. The uterus measures 7.8 x 4.0 x 4.4 cm. There is no demonstrated uterine fibroid. The cervix is closed. The right ovary measures 4.6 x 2.1 x 3.2 cm. There is right ovarian cyst. There is no visualized right adnexal mass or complex lesion. The left ovary measures 3.2 x 1.6 x 2 cm. There is no left ovarian cyst. There is no visualized left adnexal mass or complex lesion. Doppler documents blood flow to both ovaries. There is no fluid in the cul de sac. US/Transvaginal w/Preg US IMPRESSION: Single living intrauterine gestation with estimated gestational age by size of 8 weeks 5 days. The clinical dating is discordant with the ultrasound dating. Electronically Signed: Naomi Escobedo MD at 7:51 EDT ,
== END | disposition home or self-care (01) ==
LOC: US 16:31
PROVIDERS: Referring Provider Advanced Practice Midwife; Visit Provider Advanced Practice Midwife
DX: N91.2 Amenorrhea, unspecified (principal)
CPT/HCPCS: 76817

== ENCOUNTER 2024-04-10 17:06 | Emergency (ER) | payer OTHER, SELFPAY ==
[2024-04-10 17:06] VITALS: BP 127/91; PULSE 104; RESP 14; TEMP 36.2; O2SAT 98; BMI 28.0
--- NOTE | 2024-04-10 17:45 | US_ITS ---
INDICATION: left flank pain 14 week ? hydro from sto EXAMINATION: Ultrasound US Kidney(s) complete (eg, kidneys and bladder) TECHNIQUE: Diamond scale and color doppler images were obtained of the kidneys. COMPARISON: No relevant prior comparison study available FINDINGS: RIGHT KIDNEY: 10.1 cm length.. There is mild hydronephrosis. No shadowing calculus, focal lesion or perinephric collection is demonstrated. No change postvoid. LEFT KIDNEY: 11.1 cm in length.. There is mild hydronephrosis. No shadowing calculus, focal lesion or perinephric collection is demonstrated. No change post void. URINARY BLADDER: Distended. Bladder volume prevoid 550 mL. Post void volume 33 mL. Bilateral ureteral jets visualized. US/Kidney and Bladder IMPRESSION: Mild bilateral hydronephrosis. Electronically Signed: Soniya Marte MD at 19:46 EDT ,
--- NOTE | 2024-04-10 18:04 | EX.ED.DYSGE1 ---
HPI History of Present Illness Chief Complaint: Flank Pain Informant: patient Narrative Narrative: 28-year-old female presenting to the emergency room with a sudden onset of left flank pain. Patient states she is 14 weeks . 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 She states that she got pale and very sweaty. She eventually took some Tylenol which has helped. She tried to urinate but could not. She has no history of kidney stones. She has not been experiencing any change in urination dysuria or hematuria. No bowel issues. She has been eating and drinking normally. She did not experience any chest pain or palpitations. Patient states that nothing makes it better or worse. No trauma. No vaginal bleeding or leakage of fluid. She had an OB appointment today that went well. [facility] Medical History Uterine anomaly Pre-eclampsia Hx of abnormal cervical Pap smear Home Medications ?Medication ?Instructions ?Recorded ?Last Taken ?Type multivit-min no.71-iron fum 28 1 cap PO DAILY 03/26/23 10/16/23 22:00 History mg-folate no.1 1 mg-dha 300 mg 1 cap capsule (PNV-[place]) Allergy/AdvReac Type Severity Reaction Status Date / Time lavender (Lavandula Allergy Hives Verified 04/10/24 17:07 angustifolia) Surgical History Status post ovarian cystectomy (~10/17/23) delivery delivered History of appendectomy [place] teeth extracted Social History adopted: No household members: spouse number of children: 1 current occupational status: employed 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 pets and animals: Yes pets and animals: dog(s) history of recent travel: No ([place], [place]) sexually active: Yes Smoking Status: Never smoker alcohol intake: current alcohol intake frequency: holidays/special occasions only details: Not while substance use type: does not use well-balanced diet: daily or most days caffeine: Yes Type: coffee Number of servings: 1 eating out: rarely or never during the past year weight has: remained stable what type of physical activity do you participate in: other details: pilates frequency: 3-4 times per week duration: 15-30 minutes/day heavenly/zoroastrianism: Gnosticism seatbelt use: always do you feel safe at home: Yes additional social history: [employer] [facility] ED Constitutional Constitutional ED: Denies chills or weight loss Eyes Eyes: Denies change in vision or diplopia ENT ENT ED: Denies ear pain, rhinorrhea or sore throat Cardiovascular Cardiovascular: Denies chest pain, orthopnea, palpitations or racing heartbeat Respiratory/Chest Respiratory/Chest: Denies cough, dyspnea or orthopnea Gastrointestinal Gastrointestinal: Denies abdominal pain, diarrhea, nausea or vomiting Genitourinary Genitourinary ED: Reports other Details: Left flank pain ; Denies dysuria, hematuria or urinary frequency Musculoskeletal Musculoskeletal: Denies arthralgias or myalgias Integumentary Denies abscess or rash Neurologic Neurologic: Denies headache(s) or weakness Psychiatric Psychiatric: Denies anxiety, depression, suicidal ideation or suicidal thoughts Endocrine Endocrinology: Denies polydipsia, polyphagia or polyuria Allergic/Immunologic Allergic/Immunologic ED: Denies mouth swelling, tongue swelling or urticaria EXAM Physical Exam Const Vital Signs: 04/10/24 17:06 04/10/24 19:06 Temperature 97.1 F L Temperature Source Temporal Pulse Rate 104 H 72 Respiratory Rate 14 16 Blood Pressure 127/91 H Blood Pressure Mean 103 Pulse Ox 98 100 Oxygen Delivery Method Room Air Room Air Positive well nourished and well developed General Appearance ED: well developed HEENT Reports normocephalic, head/scalp atraumatic and moist mucous membranes Eyes PERRL and EOMs intact bilaterally Neck no lymphadenopathy, supple and no JVD Resp normal respiratory effort and clear to auscultation bilaterally Cardio regular rate, regular rhythm and no murmurs GI normal to inspection, nondistended, normoactive bowel sounds and non-tender Palpation: soft Back/Spine no CVA tenderness and normal ROM Extremity normal to inspection General Extremety ED: Negative for edema General Extremity: Negative for edema Neuro oriented x3 and CN's II-XII intact bilaterally Sensorium / Orientation: alert Motor Exam: strength 5/5 throughout Psych mental status grossly normal Mood & Affect: Negative for depressed or tearful Skin no rashes or lesions noted and no wounds MDM MDM MDM Narrative Medical decision making narrative: Differential diagnosis includes but not limited to ureterolithiasis UTI/pyelonephritis musculoskeletal pathology like spasm, colitis. Urinalysis 1+ bacteria 0-5 squamous cells 0 white cells 0-5 red cells. This will be sent for culture renal ultrasound shows bilateral hydronephrosis but no significant change between left and right. We talked about CT imaging risks to the regarding radiation exposure. Talked about pain medication. Patient is comfortable being discharged home and taking Tylenol. If her symptoms persist she will seek repeat evaluation. History & Record Review Discussion w/independent historian: Patient Lab Data Attestation: I reviewed the patient's lab results. Labs: Laboratory Results - last 24 hr 04/10/24 19:04 Urine Color Yellow Urine Clarity Clear Urine pH 6.5 Ur Specific [place] 1.010 Urine Protein Negative Urine Glucose (UA) Normal Urine Ketones 15 H Urine Occult Blood 150 H Urine Nitrite Negative Urine Bilirubin Negative Urine Urobilinogen Normal Ur Leukocyte Esterase Negative Urine RBC 0-5 SEEN Urine WBC 0 SEEN Ur Squamous Epith Cells 0-5 SEEN Urine Bacteria 1+ Urine Mucus 0 SEEN Radiography Diagnostic Testing: Clinical Impression(s) from Imaging Studies Renal Ultrasound 04/10/24 17:45 IMPRESSION: Mild bilateral hydronephrosis. Electronically Signed: Soniya Marte MD at 19:46 EDT , Discharge Plan Triage Chief Complaint: Flank Pain ED Provider: Vazquez Lyon Dx/Rx/DC Orders Clinical Impression: Acute left flank pain, Second trimester Instructions: ED Flank Pain, Uncertain Cause Prescriptions: No Action PNV-[place] 28-1-300 mg capsule 1 cap PO DAILY Primary Care Provider: Jerry Medley Referrals: Jerry Medley MD [Primary Care Provider] - As Needed Print Language: Grenadian Disposition Disposition: Home, Self Care
--- NOTE | 2024-04-10 18:59 | ED.RN ---
returns from US
[2024-04-10 19:06] VITALS: PULSE 72; RESP 16; O2SAT 100
[2024-04-10 19:09] LABS: Mucous, Urine 0 SEEN /hpf (<or=2+); White Blood Cells 0 SEEN /hpf (0-5)
[2024-04-10 19:16] LABS: Color, Urine Yellow (Yellow); Glucose, Dipstick Normal (Normal); Ketone-Dipstick 15 mg/dl (Negative); Leukocyte Esterase-Dipstick Negative /ul (Negative); Nitrite-Dipstick Negative (Negative); Occult Blood-Urine 150 /ul (Negative); Protein-Dipstick Negative (Negative); Urine Bilirubin Dipstick Negative (Negative); Urine Clarity Clear (Clear); Urine Urobilinogen Normal (Normal); Urine pH 6.5 (5.0 - 8.0)
[2024-04-10 19:45] LABS: Red Blood Cells-Urine 0-5 SEEN /hpf (0-5); Squamous Epithelial Cells - UA 0-5 SEEN /hpf (5-10)
[2024-04-10 19:46] LABS: Bacteria 1+ /hpf (None Seen)
[2024-04-10 19:56] VITALS: BP 134/72; PULSE 82; RESP 18; TEMP 37; O2SAT 97
== END 2024-04-10 20:08 | disposition home or self-care (01) ==
PROVIDERS: Emergency Provider Emergency Medicine; PCP Family Medicine; Visit Provider Emergency Medicine
DX: O99.891 Other specified diseases and conditions complicating pregnancy (principal); R10.9 Unspecified abdominal pain; Z3A.14 14 weeks gestation of pregnancy; N13.30 Unspecified hydronephrosis
CPT/HCPCS: 76770; 81001; 87086; 99282

== ENCOUNTER → 2024-04-10 | Outpatient (CLI) | payer OTHER, SELFPAY ==
[2024-04-10 09:58] LABS: Absolute Lymphocyte Count 1.75 X10^3/uL (0.83-4.51); Absolute Neutrophil Count 4.9 X10^3/uL (2.0-7.7); Basophil# 0.06 X10^3/uL; Basophil% 0.9 % (0-1); Eosinophil# 0.03 X10^3/uL; Eosinophils% 0.4 % (0-5); Hematocrit 39.7 % (37-47); Hemoglobin 13.4 g/dL (12.0-15.0); Lymphocyte # 1.75 X10^3/ul (0.83-4.51); Lymphocyte % 24.9 % (19-41); Mean Corp Hgb Conc 33.8 g/dL (32-36); Mean Corpuscular Hgb 29.1 pg (27.0-32.0); Mean Corpuscular Volume 86.1 fL (81-99); Mean Platelet Vol. 9.2 fl (6.2-12.0); Monocyte# 0.32 X10^3/uL; Monocyte% 4.5 % (0-10); NRBC Flagged by Analyzer 0 % (0-5); Neutrophil # 4.85 X10^3/uL (2.7-7.7); Neutrophil % 68.9 % (47-70); Platelet Count 238 K/mm3 (150-450); RBC Distribution Width CV 12.8 % (11.6-14.6); RBC Distribution Width SD 39.8 fl (35.1-43.9); Red Blood Count 4.61 M/mm3 (4.2-5.4)
[2024-04-10 10:38] LABS: ALB/GLOB Ratio 0.9 RATIO (0.9-2.4); AST(SGOT) 15 U/L (15-37); Alanine Aminotransfer ALT/SGPT 25 U/L (13-56); Albumin, Serum 3.4 g/dL (3.2-5.0); Alkaline Phosphatase 54 U/L (45-117); Anion Gap 6 (5-15); BUN 7 mg/dL (7-18); BUN/Creat Ratio 11.9 RATIO (10-20); Calcium,Total 8.7 mg/dL (8.5-10.1); Chloride 108 mmol/L (98-107); Creatinine, Serum 0.59 mg/dL (0.55-1.02); EST Glomerular Filtration Rate 129 mL/min (>60); Est Glom Filt Rate - Afr Amer 156 mL/min (>60); Globulin 3.7 g/dL (2.2-4.2); Glucose 84 mg/dL (74-106); Potassium 3.5 mmol/L (3.5-5.1); Protein, Total 7.1 g/dL (6.4-8.2); Sodium Level 138 mmol/L (136-145)
[2024-04-10 11:09] LABS: HIV - WCH Non-Reactive (Nonreactive); Hepatitis B Surface Antigen Non-Reactive (Nonreactive); Hepatitis C Antibody Non-Reactive (Nonreactive); Rubella IgG Reactive (Nonreactive); Syphilis Antibodies Non-reactive
[2024-04-10 14:32] LABS: Protein:Creat Ratio 184 mg/g CRE (0-200)
[2024-04-14 12:00] LABS: Chlamydia By Nucleic Acid AMP Negative (Negative); Gonococcus By Nucleic Acid AMP Negative (Negative)
== END | disposition home or self-care (01) ==
PROVIDERS: PCP Family Medicine; Referring Provider Advanced Practice Midwife; Visit Provider Advanced Practice Midwife
DX: O09.90 Supervision of high risk pregnancy, unspecified, unspecified trimester (principal); O09.299 Supervision of pregnancy with other poor reproductive or obstetric history, unspecified trimester
CPT/HCPCS: 36415; 80053; 82570; 84156; 85025; 86703; 86762; 86780; 86803; 86850; 86900; 86901; 87086; 87088; 87340; 87491; 87591

== ENCOUNTER → 2024-06-02 | Outpatient (CLI) | payer OTHER, SELFPAY ==
--- NOTE | 2024-06-02 15:18 | US_ITS ---
PROCEDURE: SECOND AND THIRD TRIMESTER OBSTETRICAL ULTRASOUND REASON FOR EXAM: Female, 29 years old. Evaluate anatomy LMP: 01/03/2024 TECHNIQUE: Transabdominal and Transvaginal PRIOR ULTRASOUND: 02/27/2024 FINDINGS: There is a single intrauterine fetus. The fetus is in a breech presentation. There is demonstrated cardiac activity with a heart rate of 141 bpm. There is a normal amniotic fluid volume. The largest amniotic fluid pocket measures 4.1 cm. The amniotic fluid index (BLANK) is not measured. The placenta is right lateral and low lying but not previa in location and approximately 9 mm away from the internal os. There are Grade 0 placental changes. The cervix measures 3.8 cm in length. The adnexal regions are not visualized. BIOMETRY: BPD: 4.9 cm: 20 weeks, 6 days HC: 18.6 cm: 21 weeks, 0 days AC: 16.5 cm: 21 weeks, 4 days FL: 3.4 cm: 20 weeks, 5 days CI: 76.4% FL/BPD: 69.5% FL/HC: 18.60% FL/AC: 20.7% HC/AC: 1.1 age by current US: 20 weeks, 6 days. LEANA by current US: 10/14/2024. Estimated weight: 404 grams, +/- 61 grams, 24 %. Age by LMP: 21 weeks, 4 days. LEANA by LMP: 10/09/2024. ANATOMY: Cranium: Normal lateral ventricles. Normal choroid plexus. Normal cerebellum. Normal cisterna magna. Normal face, nose and lips. Chest: Normal 4-chamber heart. Abdomen/Pelvis: Normal diaphragm. Normal stomach. Normal abdominal wall. Normal cord insertion. Normal 3 vessel cord. Normal kidneys. Normal bladder. Spine: Normal cervical spine. Normal thoracic spine. Normal lumbar spine. Normal sacrum. Extremities: Normal bilateral upper extremities. Normal bilateral lower extremities. IMPRESSION: 1. Single live intrauterine fetus in breech presentation with an estimated gestational age of 20 weeks and 6 days. 2. Right lateral and posterior low-lying placenta without previa. Electronically Signed: Jake Hernandez MD at 18:14 EDT , PROCEDURE: SECOND AND THIRD TRIMESTER OBSTETRICAL ULTRASOUND REASON FOR EXAM: Female, 29 years old. Evaluate anatomy LMP: 01/03/2024 TECHNIQUE: Transabdominal and Transvaginal PRIOR ULTRASOUND: 02/27/2024 FINDINGS: There is a single intrauterine fetus. The fetus is in a breech presentation. There is demonstrated cardiac activity with a heart rate of 141 bpm. There is a normal amniotic fluid volume. The largest amniotic fluid pocket measures 4.1 cm. The amniotic fluid index (BLANK) is not measured. The placenta is right lateral and low lying but not previa in location and approximately 9 mm away from the internal os. There are Grade 0 placental changes. The cervix measures 3.8 cm in length. The adnexal regions are not visualized. BIOMETRY: BPD: 4.9 cm: 20 weeks, 6 days HC: 18.6 cm: 21 weeks, 0 days AC: 16.5 cm: 21 weeks, 4 days FL: 3.4 cm: 20 weeks, 5 days CI: 76.4% FL/BPD: 69.5% FL/HC: 18.60% FL/AC: 20.7% HC/AC: 1.1 age by current US: 20 weeks, 6 days. LEANA by current US: 10/14/2024. Estimated weight: 404 grams, +/- 61 grams, 24 %. Age by LMP: 21 weeks, 4 days. LEANA by LMP: 10/09/2024. ANATOMY: Cranium: Normal lateral ventricles. Normal choroid plexus. Normal cerebellum. Normal cisterna magna. Normal face, nose and lips. Chest: Normal 4-chamber heart. Abdomen/Pelvis: Normal diaphragm. Normal stomach. Normal abdominal wall. Normal cord insertion. Normal 3 vessel cord. Normal kidneys. Normal bladder. Spine: Normal cervical spine. Normal thoracic spine. Normal lumbar spine. Normal sacrum. Extremities: Normal bilateral upper extremities. Normal bilateral lower extremities. US/OB Anatomy w/ Transvaginal IMPRESSION: 1. Single live intrauterine fetus in breech presentation with an estimated gestational age of 20 weeks and 6 days. 2. Right lateral and posterior low-lying placenta without previa. . Electronically Signed: Jake Hernandez MD at 18:14 EDT ,
== END | disposition home or self-care (01) ==
LOC: US 15:18
PROVIDERS: PCP Family Medicine; Referring Provider Obstetrics & Gynecology; Visit Provider Obstetrics & Gynecology
DX: O09.90 Supervision of high risk pregnancy, unspecified, unspecified trimester (principal); Z3A.00 Weeks of gestation of pregnancy not specified
CPT/HCPCS: 76805; 76817

== ENCOUNTER → 2024-07-15 | Outpatient (CLI) | payer OTHER, SELFPAY ==
[2024-07-15 10:20] LABS: Absolute Neutrophil Count 5.6 X10^3/uL (2.0-7.7); Basophil# 0.04 X10^3/uL; Basophil% 0.5 % (0-1); Eosinophil# 0.05 X10^3/uL; Eosinophils% 0.6 % (0-5); Hematocrit 36.5 % (37-47); Hemoglobin 12.2 g/dL (12.0-15.0); Lymphocyte % 21.8 % (19-41); Mean Corp Hgb Conc 33.4 g/dL (32-36); Mean Corpuscular Hgb 30.3 pg (27.0-32.0); Mean Corpuscular Volume 90.6 fL (81-99); Mean Platelet Vol. 9.3 fl (6.2-12.0); Monocyte# 0.42 X10^3/uL; Monocyte% 5.4 % (0-10); NRBC Flagged by Analyzer 0 % (0-5); Neutrophil # 5.55 X10^3/uL (2.7-7.7); Neutrophil % 71.2 % (47-70); Platelet Count 191 K/mm3 (150-450); RBC Distribution Width CV 12.9 % (11.6-14.6); Red Blood Count 4.03 M/mm3 (4.2-5.4); White Blood Count 7.8 K/mm3 (4.4-11.0)
[2024-07-15 10:40] LABS: Glucose Challenge Gest 1H 50g 108 mg/dL (70-140)
[2024-07-15 11:07] LABS: HIV - WCH Non-Reactive (Nonreactive); Syphilis Antibodies Non-reactive
== END | disposition home or self-care (01) ==
PROVIDERS: PCP Family Medicine; Referring Provider Obstetrics & Gynecology; Visit Provider Obstetrics & Gynecology
DX: O09.90 Supervision of high risk pregnancy, unspecified, unspecified trimester (principal); Z13.1 Encounter for screening for diabetes mellitus; Z3A.00 Weeks of gestation of pregnancy not specified
CPT/HCPCS: 36415; 82950; 85025; 86703; 86780

== ENCOUNTER → 2024-07-17 | Outpatient (CLI) | payer OTHER, SELFPAY | END | disposition home or self-care (01) | LOC: OPUS 07:48 | PROVIDERS: PCP Family Medicine; Referring Provider Advanced Practice Midwife; Visit Provider Advanced Practice Midwife | DX: O44.40 Low lying placenta NOS or without hemorrhage, unspecified trimester (principal) | CPT/HCPCS: 76816 ==

== ENCOUNTER → 2024-08-04 | Outpatient (CLI) | payer OTHER, SELFPAY ==
[2024-08-04 11:10] LABS: Protein, Urine (Random) 19.6 mg/dL (<11.9); Protein:Creat Ratio 141 mg/g CRE (0-200)
== END | disposition home or self-care (01) ==
LOC: LABSPEC 10:49
PROVIDERS: PCP Family Medicine; Referring Provider Advanced Practice Midwife; Visit Provider Advanced Practice Midwife
DX: O12.10 Gestational proteinuria, unspecified trimester (principal); Z3A.00 Weeks of gestation of pregnancy not specified
CPT/HCPCS: 82570; 84156

== ENCOUNTER → 2024-09-10 | Outpatient (CLI) | payer OTHER, SELFPAY | END | disposition home or self-care (01) | LOC: LABSPEC 13:55 | PROVIDERS: PCP Family Medicine; Referring Provider Obstetrics & Gynecology; Visit Provider Obstetrics & Gynecology | DX: O09.90 Supervision of high risk pregnancy, unspecified, unspecified trimester (principal); Z3A.00 Weeks of gestation of pregnancy not specified | CPT/HCPCS: 87081 ==

== ENCOUNTER → 2024-09-17 | Outpatient (CLI) | payer OTHER, SELFPAY ==
--- NOTE | 2024-09-17 12:16 | US_ITS ---
STUDY: SECOND AND THIRD TRIMESTER OBSTETRICAL ULTRASOUND - LIMITED REASON FOR EXAM: Female, 29 years old growth, hx oligo LMP: January 03, 2024. PRIOR ULTRASOUND: Comparison is made with prior study the 2023. TECHNIQUE: Transabdominal TECHNICAL QUALITY: Adequate. FINDINGS: There is a single intrauterine fetus. The fetus is in a breech presentation. There is demonstrated cardiac activity with a heart rate of 133 bpm. There is a normal amniotic fluid volume. The largest amniotic fluid pocket measures 4.4 cm. The amniotic fluid index (BLANK) is 8.4 cm. The placenta is right lateral in location and is not low lying. There are Grade 1 placental changes. The cervix measures 3.6 cm in length. BIOMETRY: BPD: 8.9 cm: 36 weeks, 0 days: 39% HC: 32.3 cm: 36 weeks, 4 days: 17% AC: 32.24 cm: 36 weeks, 1 days: 43% FL: 6.74 cm: 34 weeks, 4 days: 6% Age by LMP: 36 weeks, 6 days. LEANA by LMP: October 09, 2024. age by prior US: 35 weeks, 6 days. LEANA by prior US: October 16, 2024. age by current US: 35 weeks, 5 days. LEANA by current US: October 17, 2024. Estimated weight: 2782 grams, +/- 417 grams, 29 percentile. US/OB Limited With Biometrics IMPRESSION: Single live intrauterine gestation with mean gestational age of 35 weeks and 6 days. The measurements obtained today fall within normal expected range. Electronically Signed: Arsalan Jaffe MD at 9:14 EST ,
== END | disposition home or self-care (01) ==
PROVIDERS: PCP Family Medicine; Referring Provider Advanced Practice Midwife; Visit Provider Advanced Practice Midwife
DX: O09.293 Supervision of pregnancy with other poor reproductive or obstetric history, third trimester (principal); Z98.891 History of uterine scar from previous surgery; O32.1XX0 Maternal care for breech presentation, not applicable or unspecified; Z3A.35 35 weeks gestation of pregnancy

== ENCOUNTER → 2024-09-23 | Outpatient (CLI) | payer OTHER, SELFPAY ==
--- NOTE | 2024-09-23 12:48 | US_ITS ---
STUDY: SECOND AND THIRD TRIMESTER OBSTETRICAL ULTRASOUND - LIMITED REASON FOR EXAM: Female, 29 years old repeat BLANK LMP: January 03, 2024. PRIOR ULTRASOUND: Comparison is made with prior study dated September 17, 2024. TECHNIQUE: Transabdominal TECHNICAL QUALITY: Adequate. FINDINGS: There is a single intrauterine fetus. The fetus is in a breech presentation. There is demonstrated cardiac activity with a heart rate of 144 bpm. There is a normal amniotic fluid volume. The largest amniotic fluid pocket measures 3.0 cm. The amniotic fluid index (BLANK) is 7.5 cm. The placenta is right lateral in location and is not low lying. There are Grade 1 placental changes. BIOMETRY: Age by LMP: 37 weeks, 5 days. LEANA by LMP: October 09, 2024. US/OB Limited (No Biometrics) IMPRESSION: Normal amniotic fluid index. Electronically Signed: Arsalan Jaffe MD at 10:29 EST ,
== END | disposition home or self-care (01) ==
PROVIDERS: PCP Family Medicine; Referring Provider Obstetrics & Gynecology; Visit Provider Obstetrics & Gynecology
DX: O09.293 Supervision of pregnancy with other poor reproductive or obstetric history, third trimester (principal); Z3A.37 37 weeks gestation of pregnancy
CPT/HCPCS: 76815

== ENCOUNTER 2024-10-02 05:17 | Inpatient (IN) | payer OTHER, SELFPAY ==
[2024-10-02] VITALS (20 sets, daily range): BP systolic 118–143; BP diastolic 82–98; PULSE 72–104; RESP 9–16; TEMP 35.8–37; O2SAT 97–100; BMI 31.6
[2024-10-02] MEDS: Lactated Ringers 1,000 ML 999 ML IV (05:35)
[2024-10-02] MEDS: Sodium Citrate/Citric Acid 30 ML UDC PO (05:45)
[2024-10-02] MEDS: Acetaminophen 500 MG Tablet 1000 MG PO ×3 (05:45→18:16)
[2024-10-02 05:47] LABS: Absolute Lymphocyte Count 2.26 X10^3/uL (0.83-4.51); Absolute Neutrophil Count 5.2 X10^3/uL (2.0-7.7); Basophil# 0.06 X10^3/uL; Basophil% 0.8 % (0-1); Eosinophil# 0.07 X10^3/uL; Eosinophils% 0.9 % (0-5); Hematocrit 37.2 % (37-47); Lymphocyte # 2.26 X10^3/ul (0.83-4.51); Lymphocyte % 28.3 % (19-41); Mean Corp Hgb Conc 34.9 g/dL (32-36); Mean Corpuscular Hgb 30.7 pg (27.0-32.0); Mean Corpuscular Volume 87.9 fL (81-99); Mean Platelet Vol. 10.6 fl (6.2-12.0); Monocyte# 0.36 X10^3/uL; Monocyte% 4.5 % (0-10); NRBC Flagged by Analyzer 0 % (0-5); Neutrophil % 64.9 % (47-70); POSITIVE COUNT YES; RBC Distribution Width CV 13.1 % (11.6-14.6); RBC Distribution Width SD 41.4 fl (35.1-43.9); Red Blood Count 4.23 M/mm3 (4.2-5.4)
[2024-10-02 06:28] LABS: Syphilis Antibodies Non-reactive
[2024-10-02] MEDS: Lactated Ringers 1,000 ML 150 ML IV (06:56)
[2024-10-02 07:33] LABS: Differential Indicated SCAN CRITERIA MET
[2024-10-02 07:45] LABS: Platelet Estimate ADEQUATE (ADEQ)
[2024-10-02] MEDS: Cefazolin 2 GM in Syringe IV (08:30)
[2024-10-02] MEDS: Oxytocin 15 Units/NS 250ml 15 UNITS/250 ML IV.SOLN 83 UNITS IV (09:40)
[2024-10-02] MEDS: Ketorolac 30 MG/ML Syringe IV ×3 (10:25→22:10)
[2024-10-02] MEDS: Ondansetron 4 MG/2 ML Vial IV ×2 (11:58→16:11)
--- NOTE | 2024-10-02 17:36 | DCINST_ITS ---
Discharge Instructions DC O2, CPAP, BIPAP needs Home O2 Discharge instructions: No Follow Up Care Test Results: Test results from this visit will be discussed in further detail at your follow- up appointment, if applicable. Discharge Plan Admission Admit Date/Time: 10/02/24 05:17 Attending Provider: Macy Michael Primary Care Provider: Jerry Medley Instructions Patient Instructions: After a Discharge Orders/Prescriptions Prescriptions: New naproxen 500 mg tablet 500 mg PO BID PRN PRN (Reason: Pain) Qty: 30 1RF oxycodone-acetaminophen [Percocet] 5-325 mg tablet 1 tab PO Q4H PRN (Reason: pain) 7 Days Qty: 20 0RF No Action PNV-[place] 28-1-300 mg capsule 1 cap PO DAILY aspirin [Adult Aspirin Regimen] 81 mg tablet,delayed release (DR/EC) 81 mg PO DAILY Referrals / Follow Up: Jerry Medley MD [Primary Care Provider] - Disposition Disposition (needs filled in before D/C Order can be placed): Home, Self Care
--- NOTE | 2024-10-02 17:36 | OP.PCM_ITS ---
Assessment & Plan (1) delivery delivered: COMMENT: LTCS (2) Bicornuate uterus: (3) Hx of pre-eclampsia in prior , currently : COMMENT: Pre e labs ordered at [facility]- [facility] (4) Previous section: COMMENT: breech, oligo, RLTCS scheduled for 10/02 @ 7:15 with (5) Supervision of high risk , antepartum: COMMENT: PRR, , LEANA 10/09/24, girl PC [place], [place] (6) Bleeding in early : (7) Breech presentation: COMMENT: 36 week US (8) : QUALIFIERS: Weeks of gestation: 37 weeks Qualified Code(s): Z3A.37 - 37 weeks gestation of COMMENT: Neg GBS. NIPT low risk, nl GCT Maternal Data Information LEANA Calculator Estimated Delivery Date Method Current WG Current Estimate 10/09/24 LMP (Certain) 39w 1d Other Estimates 10/06/24 Ultrasound #1 39w 4d 10/04/24 Ultrasound #2 39w 6d Final LEANA Source: LMP Operative Report (OB) Cecarean Details Procedure Type: low transverse Date of Procedure: 10/02/24 Procedure Start Time: 08:42 Procedure Stop Time: 09:25 Pre-Operative Diagnosis: Other Other Pre-Operative diagnosis: see a/p comments Post-Operative Diagnosis: Same as Pre-operative diagnosis Classification: Scheduled Type of Anesthesia: Spinal Special Medications: none Antibiotic Given: Ancef 2 grams IV x1 Drain: Dhillon to straight drain Estimated Blood Loss: 500 Fluids Replaced: crystalloid Findings Description of surgery: Spinal anesthesia was placed without difficulty. Dhillon catheter was placed. The patient was placed in the dorsal supine position with leftward tilt. Patient was prepped and draped in the normal sterile fashion. Pfannenstiel skin incision was made with the scalpel and carried through to the underlying layer of fascia with the scalpel. Fascia was nicked in the midline and the incision extended laterally. The rectus bellies were dissected off superiorly and inferiorly with out complication both sharply and bluntly. The peritoneum was entered digitally. noted to be in the right uterine horn. The incision was stretched and a low transverse uterine incision was made with the scalpel. The buttox was delivered atraumatically and the right and left legs were swept anteriorly and delivered, followed by the body and the arms which were swept anteriorly and delivered. Gentle traction was placed on the mentum to flex the head which was delivered without complication. The cord was clamped and cut and the infant was handed off to awaiting nurse. The placenta was delivered spontaneously immediately following and was noted to be intact and have a three- vessel cord. The uterus was exteriorized cleared of all clots and debris, and the incision was closed in a single layer closure using #1 Monocryl. hemoblast used for hemostasis. The ovaries and fallopian tubes were noted to be within normal limits. The uterus was returned to the maternal abdomen and gutters were cleared of all clots and debris. The peritoneum was closed with 3-0 Monocryl in a running fashion. Gloves were changed prior to fascial closure. Fascia was closed with 0 PDS in a running fashion. Subcutaneous tissue was copiously irrigated and the skin was closed with 3-0 Monocryl in a subcuticular fashion. Mepilex dressing was applied without complication. Patient was taken to recovery in stable condition. It was discussed with the patient that based on the clinical information obtained during this encounter, combined with her history, at this time I would recommend cesareans for future deliveries if further pregnancies are desired. Surgical findings: in right uterine horn Presentation: Vertex Amniotic Membrane Rupture Type: Artificial Amniotic Fluid Description: Clear Specimen collected: Yes Description of specimen(s) removed: placenta and baby Cord Vessel Description: 3 Vessels Delayed Cord Clamping: Yes Power Distribution Engineer golf club assembler: Yes Developmental Education Instructor: Diandra Reza Tasks completed by assistant professor of life sciences: Opening & closing, Retracting and Other (assisting in delivery of the ) Additional lab assistant?: No Complications Complications: No Admit VTE Documentation VTE Present on Admission: No VTE Mechan Device Prophylaxis: SCD's Procedures Urinary/Genital [id number]: [id number] [facility]
--- NOTE | 2024-10-02 17:36 | HP.PCM.OB_ITS ---
HPI - General General Date of Admission: 10/02/24 HPI Narrative NELLI STEWART, is a 29 F who presents for RLTCS due to breech and previous csection Maternal Data Information LEANA Calculator Estimated Delivery Date Method Current WG Current Estimate 10/09/24 LMP (Certain) 39w 1d Other Estimates 10/06/24 Ultrasound #1 39w 4d 10/04/24 Ultrasound #2 39w 6d PFSH PFS Medical History (Updated 10/03/24 @ 09:[address] Macy Michael MD) Oligohydramnios Uterine anomaly Pre-eclampsia Hx of abnormal cervical Pap smear Home Medications ?Medication ?Instructions ?Recorded ?Last Taken ?Type multivit-min no.71-iron fum 28 1 cap PO DAILY pregnanc y 03/26/23 10/16/23 22:00 History mg-folate no.1 1 mg-dha 300 mg 1 cap capsule (PNV-Meridian) aspirin 81 mg tablet,delayed 81 mg PO DAILY ask provid er 10/02/24 Unknown History release (Adult Aspirin Regimen) naproxen 500 mg tablet 500 mg PO BID PRN PRN Pain # 30 tabs 10/03/24 Unknown Rx oxycodone-acetaminophen 5 mg-325 1 tab PO Q4H PRN pain 7 days #20 10/03/24 Unknown Rx mg tablet (Percocet) tabs Allergy/AdvReac Type Severity Reaction Status Date / Time lavender (Lavandula Allergy Hives Verified 10/02/24 05:46 angustifolia) Surgical History (Updated 10/02/24 @ 05:50 by Maureen Stoll) History of surgery Status post ovarian cystectomy (~10/17/23) delivery delivered History of appendectomy [place] teeth extracted Social History adopted: No household members: spouse number of children: 1 current occupational status: employed 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 pets and animals: Yes pets and animals: dog(s) history of recent travel: No ([place], [place]) sexually active: Yes Smoking Status: Never smoker alcohol intake: current alcohol intake frequency: holidays/special occasions only details: Not while substance use type: does not use well-balanced diet: daily or most days caffeine: Yes Type: coffee Number of servings: 1 eating out: rarely or never during the past year weight has: remained stable what type of physical activity do you participate in: other details: pilates frequency: 3-4 times per week duration: 15-30 minutes/day heavenly/tenriism: [employer] Orthodox seatbelt use: always do you feel safe at home: Yes additional social history: [place] History 2 Elective abortions Hx Para 1 Spontaneous abortions Hx # Term Pregnancies Ectopic pregnancies Hx # Pregnancies Multiple births # of living children 1 Past Pregnancies Del. Date Name GA/Weeks Outcome Route Bth Weight Gen Labor Lgth Anesthesia Del Locatn Provider FOB 10/17/23 Walker 36 live - 5lbs 5oz Male spinal H Dr. Alec Rome Delivery Date: 10/17/23 Last Updated by: Elizabeth Fisher Breech, [place], Right horn, pre-e, left ovarian cystectomy Visit Details Expected Delivery Route/Plan Labor Preferences- CB/BF classes: [] labor support person: [] labor intervention preferences: [] pain management options preferred: [] cut cord/dad catch: [] : [] PP control planned: [] discussed possible routes of delivery and associated risks: [] special requests: [] Plans Covid status: [] Flu vaccine: [] Tdap vaccine: [] Rhogam: [] LARC form signed: [] Problem list reviewed and updated with the most current plan of care details and appropriate orders placed. Relevant counseling for the gestational age provided. Continue routine care and follow up unless otherwise noted in visit notes/problem list details OB Flowsheet Initial Weight: Not Recorded Date -?-?-?-?-?-?-?-?-?-?-?-?- EGA Weight BP Urine Prot -?-?-?-?-?-?-?-?-?-?-?-?- Glucose FHR FuHt Pres Dilation -?-?-?-?-?-?-?-?-?-?-?-?- Effaced St Visit Note 04/10/24 -?-?-?-?-?-?-?-?-?-?-?-?- 14w 0d 158 lb 8 oz 153/95 140/86 -?-?-?-?-?-?-?-?-?-?-?-?- 160 -?-?-?-?-?-?-?-?-?-?-?-?- KW-Early US done with [employer] [facility]. 84mm today measuring 14.3 gestation. NIPT today, pre e labs with NOB labs. undecided if want R C/S 05/08/24 -?-?-?-?-?-?-?-?-?-?-?-?- 18w 0d 158 lb 130/68 Negative -?-?-?-?-?-?-?-?-?-?-?-?- Negative 140 -?-?-?-?-?-?-?-?-?-?-?-?- SM- no vb lof no signficant crmaping 06/02/24 -?-?-?-?-?-?-?-?-?-?-?-?- 21w 4d 161 lb 2 oz 134/86 Nega tive -?-?-?-?-?-?-?-?-?-?-?-?- Negative 145 -?-?-?-?-?-?-?-?-?-?-?-?- JV- bp's still s lightly elevated. has not started baby asa yet. plan to start now. may require procardia in near future. pt to call if bp's at home exceed 150/100 07/02/24 -?-?-?-?-?-?-?-?-?-?-?-?- 25w 6d 165 lb 124/84 Negative -?-?-?-?-?-?-?-?-?-?-?-?- Negative 145 25 -?-?-?-?-?-?-?-?-?-?-?-?- KW- no vb/lof/ct x. good fm. Started Asa. 28 week US ordered through [facility]. Pt declined [facility]. 08/04/24 -?-?-?-?-?-?-?-?-?-?-?-?- 30w 4d 169 lb 137/88 Trace -?-?-?-?-?-?-?-?-?-?-?-?- Negative 145 31 -?-?-?-?-?-?-?-?-?-?-?-?- KW- no vb/lof/ct x. good fm. Tdap and LARC today. KW- no vb/lof/ctx. good fm. Tdap and LARC today. message sent to set up C/S 08/18/24 -?-?-?-?-?-?-?-?-?-?-?-?- 32w 4d 172 lb 146/88 118/78 Negative -?-?-?-?-?-?-?-?-?-?-?-?- Negative 140 32 -?-?-?-?-?-?-?-?-?-?-?-?- SM- no vb lof go od fm no reuglar ctx no VICKERS BV 09/04/24 -?-?-?-?-?-?-?-?-?-?-?-?- 35w 0d 173 lb 4 oz 129/88 Nega tive -?-?-?-?-?-?-?-?-?-?-?-?- Negative 150 36 -?-?-?-?-?-?-?-?-?-?-?-?- KW- no vb/lof/ct x. good fm. 36 week growth ordered. 09/10/24 -?-?-?-?-?-?-?-?-?-?-?-?- 35w 6d 175 lb 2 oz 132/88 Nega tive -?-?-?-?-?-?-?-?-?-?-?-?- Negative 144 38 Breech -?-?-?-?-?-?-?-?-?-?-?-?- JV- gbs nayelie cate Has growth scan next week. Fundal height is off to the right due to bicornuate uterus. 09/17/24 -?-?-?-?-?-?-?-?-?-?-?-?- 36w 6d 177 lb 6 oz 127/84 Nega tive -?-?-?-?-?-?-?-?-?-?-?-?- Negative 140 37 Breech -?-?-?-?-?-?-?-?-?-?-?-?- SM- no vb lof go od fm n oreuglar ctx repeat BLANK next week preop packet reviewed 09/23/24 -?-?-?-?-?-?-?-?-?-?-?-?- 37w 5d 178 lb 6 oz 132/91 Nega tive -?-?-?-?-?-?-?-?-?-?-?-?- Negative 145 38 Breech 0 -?-?-?-?-?-?-?-?-?-?-?-?- KW- no vb/lof/ct x. good fm. had US prior to appt and BLANK 7.5. no concerns today. NST FHR Rate Baby A Baseline: 130 Variability:: Moderate Accelerations:: 15 x 15 Decelerations:: None NST Reactive:: Yes FHR Category:: Category I Uterine Activity:: irregular ROS Constitutional Constitutional: Reports systems reviewed and no addt'l complaints, except as documented Eyes Eyes: Denies change in vision ENT HEENT: Reports systems reviewed and no addt'l complaints, except as documented; Denies headache(s) Cardiovascular Cardiovascular: Reports systems reviewed and no addt'l complaints, except as documented; Denies chest pain or dyspnea Respiratory/Chest Respiratory/Chest: Reports systems reviewed and no addt'l complaints, except as documented Gastrointestinal Gastrointestinal: Reports systems reviewed and no addt'l complaints, except as documented; Denies abdominal pain Genitourinary Genitourinary: Reports systems reviewed and no addt'l complaints, except as documented, contractions Details: present (irregular) and movement Details: present; Denies dysuria or genital lesions Musculoskeletal Musculoskeletal: Reports systems reviewed and no addt'l complaints, except as documented Neurologic Neurologic: Reports systems reviewed and no addt'l complaints, except as documented Endocrine Endocrinology: Reports systems reviewed and no addt'l complaints, except as documented Vital Signs Vital Signs Vital Signs: 10/02/24 05:35 10/02/24 05:35 10/02/24 05:35 Temperature Temperature Source Temporal Pulse Rate 104 H Respiratory Rate Respiratory Depth Respiratory Pattern Blood Pressure 143/96 H Blood Pressure Mean BP Systolic 143 BP Diastolic 96 Blood Pressure Source Blood Pressure Position Blood Pressure Location Baseline BP Pulse Ox Oxygen Delivery Method 10/02/24 05:35 10/02/24 05:35 10/02/24 05:35 Temperature 98.6 F Temperature Source Pulse Rate Respiratory Rate 16 Respiratory Depth Respiratory Pattern Blood Pressure Blood Pressure Mean BP Systolic BP Diastolic Blood Pressure Source Blood Pressure Position Blood Pressure Location Baseline BP Pulse Ox 97 Oxygen Delivery Method 10/02/24 05:58 10/02/24 09:45 10/02/24 09:45 Temperature 98.6 F Temperature Source Temporal Pulse Rate 104 H Respiratory Rate 14 Respiratory Depth Respiratory Pattern Normal Blood Pressure 143/96 H 131/93 H Blood Pressure Mean 111 101 BP Systolic BP Diastolic Blood Pressure Source Monitor Monitor Blood Pressure Position Semi-Fowlers Blood Pressure Location Right Arm Baseline BP 143/96 Pulse Ox 97 97 Oxygen Delivery Method Room Air 10/02/24 10:00 10/02/24 10:00 10/02/24 10:00 Temperature 97.0 F L Temperature Source Temporal Temporal Pulse Rate 74 Respiratory Rate 15 Respiratory Depth Respiratory Pattern Blood Pressure 131/88 H Blood Pressure Mean 102 BP Systolic BP Diastolic Blood Pressure Source Monitor Blood Pressure Position Blood Pressure Location Baseline BP 143/96 Pulse Ox 97 Oxygen Delivery Method Room Air 10/02/24 10:15 10/02/24 10:15 10/02/24 10:30 Temperature Temperature Source Pulse Rate 73 79 Respiratory Rate 11 L 14 Respiratory Depth Respiratory Pattern Blood Pressure 129/91 H 142/97 H Blood Pressure Mean 103 112 BP Systolic BP Diastolic Blood Pressure Source Monitor Monitor Blood Pressure Position Blood Pressure Location Baseline BP 143/96 Pulse Ox 97 98 Oxygen Delivery Method 10/02/24 10:30 10/02/24 10:45 10/02/24 10:45 Temperature Temperature Source Pulse Rate 72 Respiratory Rate 9 L Respiratory Depth Respiratory Pattern Blood Pressure 132/91 H Blood Pressure Mean 103 BP Systolic BP Diastolic Blood Pressure Source Monitor Blood Pressure Position Blood Pressure Location Baseline BP 143/96 143/96 Pulse Ox 98 Oxygen Delivery Method 10/02/24 11:00 10/02/24 11:00 10/02/24 11:15 Temperature Temperature Source Pulse Rate Respiratory Rate Respiratory Depth Respiratory Pattern Blood Pressure 133/95 H 135/96 H Blood Pressure Mean 106 106 BP Systolic BP Diastolic Blood Pressure Source Monitor Monitor Blood Pressure Position Blood Pressure Location Baseline BP 143/96 Pulse Ox 97 98 Oxygen Delivery Method 10/02/24 11:15 10/02/24 11:30 10/02/24 11:30 Temperature Temperature Source Pulse Rate Respiratory Rate Respiratory Depth Respiratory Pattern Blood Pressure 137/91 H Blood Pressure Mean 104 BP Systolic BP Diastolic Blood Pressure Source Monitor Blood Pressure Position Blood Pressure Location Baseline BP 143/96 143/96 Pulse Ox Oxygen Delivery Method 10/02/24 11:45 10/02/24 11:45 10/02/24 12:00 Temperature Temperature Source Pulse Rate Respiratory Rate Respiratory Depth Respiratory Pattern Blood Pressure 136/91 H 139/92 H Blood Pressure Mean 103 106 BP Systolic BP Diastolic Blood Pressure Source Monitor Monitor Blood Pressure Position Blood Pressure Location Baseline BP 143/96 Pulse Ox 98 Oxygen Delivery Method 10/02/24 12:15 10/02/24 12:30 10/02/24 12:45 Temperature Temperature Source Pulse Rate Respiratory Rate Respiratory Depth Respiratory Pattern Blood Pressure Blood Pressure Mean BP Systolic BP Diastolic Blood Pressure Source Monitor Monitor Monitor Blood Pressure Position Blood Pressure Location Baseline BP Pulse Ox 98 99 99 Oxygen Delivery Method 10/02/24 13:00 10/02/24 13:00 10/02/24 14:20 Temperature 97.0 F L Temperature Source Temporal Temporal Temporal Pulse Rate 75 Respiratory Rate 16 Respiratory Depth Normal Respiratory Pattern Blood Pressure 137/98 H Blood Pressure Mean 111 BP Systolic BP Diastolic Blood Pressure Source Monitor Blood Pressure Position Semi-Fowlers Blood Pressure Location Right Arm Baseline BP Pulse Ox 99 Oxygen Delivery Method Room Air 10/02/24 14:20 10/02/24 16:00 10/02/24 16:00 Temperature 96.7 F L 96.5 F L Temperature Source Temporal Temporal Temporal Pulse Rate 86 84 Respiratory Rate 16 16 Respiratory Depth Normal Normal Respiratory Pattern Blood Pressure 141/96 H 138/87 H Blood Pressure Mean 111 104 BP Systolic BP Diastolic Blood Pressure Source Monitor Monitor Blood Pressure Position Semi-Fowlers Semi-Fowlers Blood Pressure Location Right Arm Right Arm Baseline BP Pulse Ox 100 100 Oxygen Delivery Method Room Air Room Air Weight Weight: 179 lb Body Mass Index (BMI) 31.6 Physical Exam Const alert, oriented x3, no apparent distress and healthy appearing HEENT normocephalic and moist oral mucous membranes Head and Scalp: atraumatic Neck full ROM, no lymphadenopathy, supple and thyroid normal General: trachea midline Lymph Lymphatic: no lymphadenopathy noted Chest inspection of chest normal Resp normal respiratory effort Cardio regular rate GI soft to palpation and non-tender GI Narrative: gravid Inspection: gravid external exam normal Manual OB Exam: estimated gestational size appropriate, dilated, effaced and station Extremity normal to inspection General Extremity: Negative for edema Skin no rashes or lesions noted Neuro no focal motor deficits and deep tendon reflexes 2+ bilaterally Motor Exam: strength 5/5 throughout and clonus absent Psych mental status grossly normal Labs Labs Labs: Blood Type O POSITIVE Antibody Screen NEGATIVE Hct 25.9 % (37-47) L Hgb 9.1 g/dL (12.0-15.0) L Obstetrics Ultrasound Syphilis Total Ab Non-reactive Rubella IgG Antibody Reactive (Nonreactive) Hep Bs Antigen Non-Reactive (Nonreactive) Hepatitis C Antibody Non-Reactive (Nonreactive) Chlamydia DNA (ANILA) Negative (Negative) N.gonorrhoeae DNA (NAILA) Negative (Negative) HIV 1&2 Antibody Non-Reactive (Nonreactive) Glucose 1 Hr 50 gm 108 mg/dL (70-140) Assessment & Plan (1) Bicornuate uterus: (2) Hx of pre-eclampsia in prior , currently : COMMENT: Pre e labs ordered at [facility] (3) Previous section: COMMENT: breech, oligo, RLTCS scheduled for 10/02 @ 7:15 with (4) Supervision of high risk , antepartum: COMMENT: PRR, , LEANA 10/09/24, girl PC Walker, [place] (5) Bleeding in early : (6) Breech presentation: COMMENT: 36 week US (7) : QUALIFIERS: Weeks of gestation: 37 weeks Qualified Code(s): Z3A.37 - 37 weeks gestation of COMMENT: Neg GBS. NIPT low risk, nl GCT PLAN: Plan admit for RLTCS
--- NOTE | 2024-10-02 21:00 | NURSING ---
patient was up to BR at 2034, unable to void. At 2099 RN asked to straight cath patient, patient stated she would like to try to go to the bathroom again
[2024-10-02] MEDS: Enoxaparin 40 MG/0.4 ML Syringe SC (21:01)
--- NOTE | 2024-10-02 22:01 | NURSING ---
RN went in to asses patient void. Patient unable to void at 0. RN educated on importance and need to straight cath. patient refused at this time, stating she has the urge to go and would like to try again. after she drinks her water. RN reeducated. RN went in at 2200 to assess void, patient in BR at this time
[2024-10-02] MEDS: 0.9% Saline Lock 10 ML Syringe IV (22:10)
[2024-10-03] MEDS: Acetaminophen 500 MG Tablet 1000 MG PO ×2 (00:29→06:30)
[2024-10-03 00:30] VITALS: BP 124/81; PULSE 75; RESP 16; TEMP 36.8; O2SAT 98
[2024-10-03 04:19] VITALS: BP 122/81; PULSE 95; RESP 16; TEMP 36.2; O2SAT 100
[2024-10-03] MEDS: Ketorolac 30 MG/ML Syringe IV (04:22)
[2024-10-03] MEDS: 0.9% Saline Lock 10 ML Syringe IV (04:22)
[2024-10-03 04:43] LABS: Hematocrit 25.9 % (37-47); Hemoglobin 9.1 g/dL (12.0-15.0); Mean Corp Hgb Conc 35.1 g/dL (32-36); Mean Corpuscular Hgb 31.1 pg (27.0-32.0); Mean Corpuscular Volume 88.4 fL (81-99); Mean Platelet Vol. 9.6 fl (6.2-12.0); Platelet Count 187 K/mm3 (150-450); RBC Distribution Width SD 42.1 fl (35.1-43.9); Red Blood Count 2.93 M/mm3 (4.2-5.4); White Blood Count 10.6 K/mm3 (4.4-11.0)
[2024-10-03 05:14] LABS: ALB/GLOB Ratio 0.8 RATIO (0.9-2.4); AST(SGOT) 26 U/L (15-37); Alanine Aminotransfer ALT/SGPT 18 U/L (13-56); Albumin, Serum 2.2 g/dL (3.2-5.0); Alkaline Phosphatase 86 U/L (45-117); Anion Gap 7 (5-15); BUN 13 mg/dL (7-18); BUN/Creat Ratio 20.5 RATIO (10-20); Calcium,Total 8.4 mg/dL (8.5-10.1); Chloride 104 mmol/L (98-107); Creatinine, Serum 0.64 mg/dL (0.55-1.02); EST Glomerular Filtration Rate 117 mL/min (>60); Est Glom Filt Rate - Afr Amer 142 mL/min (>60); Estimated Creatinine Clearance 130.87 ml/min; Globulin 2.7 g/dL (2.2-4.2); Glucose 89 mg/dL (74-106); Protein, Total 4.9 g/dL (6.4-8.2); Sodium Level 136 mmol/L (136-145)
--- NOTE | 2024-10-03 07:48 | PN.OBGYN_ITS ---
Subjective Subjective Patient doing well without complaints. Tolerating PO. Ambulating and voiding without difficulty. Feeding well. Denies chest pain, shortness of breath, calf pain/swelling, fevers, chills, lightheadedness. Objective Data Objective Data Vital Signs: Vital Signs Temp Pulse Resp BP Pulse Ox O2 Del Method 97.2 F L 95 16 122/81 H 100 Room Air 10/03/24 04:19 10/03/24 04:19 10/03/24 04:19 10/03/24 04:19 10/03/24 04:19 10/03/24 04:19 Oxygen Delivery Method Room Air Weight: 179 lb Body Mass Index (BMI) 31.6 Intake & Output: Intake and Output for Last 24 Hours 10/01/24 10/02/24 10/03/24 23:59 23:59 23:59 Intake Total 2470 / 2470 Output Total 950 / 950 250 / 250 Balance 1520 / 1520 -250 / -250 Lab / Micro Data 10/03/24 04:30 10/03/24 04:30 Labs: Laboratory Results - last 24 hr 10/03/24 04:30: WBC 10.6, RBC 2.93 L, Hgb 9.1 L, Hct 25.9 L, MCV 88.4, MCH 31.1, MCHC 35.1, RDW Std Deviation 42.1, RDW Coeff of João 13.0, Plt Count 187, MPV 9.6, Sodium 136, Potassium 4.0, Chloride 104, Carbon Dioxide 24.0, Anion Gap 7, BUN 13, Creatinine 0.64, Estim Creat Clear Calc 130.87, Est GFR (MDRD) Af Amer 142, Est GFR (MDRD) Non-Af 117, BUN/Creatinine Ratio 20.5 H, Glucose 89, Calcium 8.4 L, Total Bilirubin 0.20, AST 26, ALT 18, Alkaline Phosphatase 86, Total Protein 4.9 L, Albumin 2.2 L, Globulin 2.7, Albumin/Globulin Ratio 0.8 L Physical Exam Const alert and oriented x3 Neck full ROM Resp normal respiratory effort, normal air movement and clear to auscultation bilaterally Cardio regular rate and regular rhythm GI normal to inspection, nondistended, normoactive bowel sounds Uterus Palpation: uterus fundus firm Extremity normal to inspection, full ROM and no pedal edema Skin no rashes or lesions noted Skin Narrative: dressing c/d/i Psych mental status grossly normal Assessment & Plan (1) Previous section: COMMENT: breech, oligo, RLTCS scheduled for 10/02 @ 7:15 with SM (2) Supervision of high risk , antepartum: COMMENT: PRR, , LEANA 10/09/24, girl PC [place], [place] (3) Breech presentation: COMMENT: 36 week US (4) : QUALIFIERS: Weeks of gestation: 37 weeks Qualified Code(s): Z 3A.37 - 37 weeks gestation of COMMENT: Neg GBS. NIPT low risk, nl GCT PLAN: Plan s/p LTCS PPD # 1 1. routine post care 2. breast feeding- support given 3. rh positive 4. rubella immune 5. desires early d/c home if is cleared.
[2024-10-03 09:13] VITALS: BP 114/82; PULSE 98; RESP 14; TEMP 36.7; O2SAT 99
[2024-10-03] MEDS: Aspirin E.C. 81 MG Tablet PO (09:41)
[2024-10-03] MEDS: Naproxen 500 MG Tablet PO (10:36)
--- NOTE | 2024-10-09 14:18 | NURSING ---
Follow up phone call: Patient is doing well, her incision is looking good. She did have bruising but just saw her OB provider and everything is healing well. Patient has no signs or symptoms of pp complications. Infant is feeding well and patient is still using formula and pumping. Patient had no questions or concerns at this time.
== END 2024-10-03 12:20 | disposition home or self-care (01) | DRG 788 ==
PROVIDERS: Admitting Provider Obstetrics & Gynecology; PCP Family Medicine; Referring Provider Obstetrics & Gynecology; Visit Provider Obstetrics & Gynecology
PROC: 10D00Z1 Extraction of Products of Conception, Low, Open Approach (ICD-10-PCS; CPT 59514; principal; 2024-10-02 07:00)
DX: O32.1XX0 Maternal care for breech presentation, not applicable or unspecified (principal); O34.03 Maternal care for unspecified congenital malformation of uterus, third trimester; O34.211 Maternal care for low transverse scar from previous cesarean delivery; Z37.0 Single live birth; Z3A.37 37 weeks gestation of pregnancy; Z79.82 Long term (current) use of aspirin; Q51.3 Bicornate uterus
CPT/HCPCS: 59050; 80053; 85025; 85027; 86780; 86850; 86900; 86901; A4216; J2405

== ENCOUNTER → 2024-10-12 | Outpatient (CLI) | payer OTHER, SELFPAY ==
[2024-10-12 11:02] LABS: Absolute Lymphocyte Count 1.58 X10^3/uL (0.83-4.51); Absolute Neutrophil Count 4.4 X10^3/uL (2.0-7.7); Basophil# 0.07 X10^3/uL; Eosinophil# 0.14 X10^3/uL; Eosinophils% 2.1 % (0-5); Hematocrit 31.1 % (37-47); Lymphocyte # 1.58 X10^3/ul (0.83-4.51); Lymphocyte % 23.5 % (19-41); Mean Corp Hgb Conc 32.2 g/dL (32-36); Mean Corpuscular Hgb 29.8 pg (27.0-32.0); Mean Corpuscular Volume 92.6 fL (81-99); Mean Platelet Vol. 8.6 fl (6.2-12.0); Monocyte# 0.41 X10^3/uL; Monocyte% 6.1 % (0-10); NRBC Flagged by Analyzer 0 % (0-5); Neutrophil # 4.44 X10^3/uL (2.7-7.7); Neutrophil % 66.3 % (47-70); Platelet Count 427 K/mm3 (150-450); RBC Distribution Width CV 13.1 % (11.6-14.6); RBC Distribution Width SD 43.7 fl (35.1-43.9); Red Blood Count 3.36 M/mm3 (4.2-5.4); White Blood Count 6.7 K/mm3 (4.4-11.0)
[2024-10-12 11:11] LABS: ALB/GLOB Ratio 0.7 RATIO (0.9-2.4); AST(SGOT) 29 U/L (15-37); Alanine Aminotransfer ALT/SGPT 32 U/L (13-56); Alkaline Phosphatase 105 U/L (45-117); Anion Gap 6 (5-15); BUN 17 mg/dL (7-18); BUN/Creat Ratio 28.8 RATIO (10-20); Calcium,Total 9.2 mg/dL (8.5-10.1); Chloride 106 mmol/L (98-107); Creatinine, Serum 0.59 mg/dL (0.55-1.02); EST Glomerular Filtration Rate 128 mL/min (>60); Est Glom Filt Rate - Afr Amer 155 mL/min (>60); Globulin 4.3 g/dL (2.2-4.2); Glucose 80 mg/dL (74-106); Potassium 4.5 mmol/L (3.5-5.1); Protein, Total 7.3 g/dL (6.4-8.2); Sodium Level 138 mmol/L (136-145)
== END | disposition home or self-care (01) ==
LOC: BWCLAB 10:27
PROVIDERS: PCP Family Medicine; Visit Provider Obstetrics & Gynecology
DX: O16.5 Unspecified maternal hypertension, complicating the puerperium (principal)
CPT/HCPCS: 36415; 80053; 85025